=== PATIENT | female | born 1990 | race Caucasian/White ===

== ENCOUNTER 2017-03-26 09:20 | Emergency (ER) | payer OTHER ==
[~2017-03-26] VITALS: Ht 162.6 cm; Wt 81.6 kg
[~2017-03-26 09:20] MED LIST: ACET1TAB43 PO; AMOX500C2 PO; BC PILL PO; CEFD300C3 PO; DCS100C PO; HYDR-89 PO; HYDR1TAB PO; HYOS0.1217 PO; IBP800T PO; NAPR-243 PO; NAPR220T76; NITR-65 PO; NITR100C3 PO; NORE1TAB40 PO; ONDA-42 SL; PHEN200T27 PO; SPRINTEC; [UNRECOGNIZED DRUG - REMARK]
[2017-03-26] MEDS ORDERED: IBUPROFEN 800 MG (MOTRIN) TAB PO STA (09:57)
[2017-03-26] MEDS ORDERED: CYCLOBENZAPRINE 10 MG (FLEXERIL) TAB PO STA (09:57)
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
[2017-03-26] MEDS ORDERED: CYCL10TA9 PO (10:10)
[2017-03-26 10:14] VITALS: BP 130/76
== END 2017-03-26 10:14 | disposition home or self-care (01) ==
LOC: EDUNIT# 09:20 → ER 09:22
DX: S50.11XA Contusion of right forearm, initial encounter (principal); Z90.710 Acquired absence of both cervix and uterus; Z87.59 Personal history of other complications of pregnancy, childbirth and the puerperium; V43.52XA Car driver injured in collision with other type car in traffic accident, initial encounter; Y92.411 Interstate highway as the place of occurrence of the external cause
CPT/HCPCS: 99283

== ENCOUNTER 2017-04-25 19:17 | Emergency (ER) | payer OTHER ==
[~2017-04-25] VITALS: Ht 162.6 cm; Wt 86.2 kg
[~2017-04-25 19:17] MED LIST changes: +CYCL10TA9 PO
--- OUTSIDE RECORDS SUMMARY | 2017-04-25 19:23 | XMS REPORT ---
Author Author JUWAN LIU [facility] eClinicalWorks Address Unknown Phone Unavailable Care Team Providers Care Managing Principal Name Role Phone JUWAN LIU CP Unavailable Allergies, Adverse Reactions, Alerts Substance Reaction Event Type N.K.D.A. Info Not Available Non Drug Allergy Problems Problem Type Condition Code Onset Dates Condition Status Problem Acute serous otitis media 381.01 Active Problem Screening examination for venereal disease V74.5 Active Problem Unspecified symptom associated with female genital organs 625.9 Active Problem Cough 786.2 Active Problem Dysuria 788.1 Active Problem Acute sinusitis, unspecified 461.9 Active Problem Major depressive disorder, single episode, moderate 296.22 Active Problem Nausea alone 787.02 Active Problem Abdominal pain, unspecified site 789.00 Active Problem Other and unspecified noninfectious gastroenteritis and colitis 558.9 Active Assessment Granulation tissue L92.9 Active Assessment Contusion of right great toe with damage to nail S90.211A Active Problem Intestinal infection due to other organism, NEC 008.8 Active Problem Other acute sinusitis 461.8 Active Medications Medication Code System Code Instructions Start Date End Date Status Dosage Sprintec 28 [facility] [address]-58 0.25-35 MG-MCG Orally Once a day 1 tablet Procedures Procedure Coding System Code Date Office Visit, Est Pt., Level 3 CPT-4 15749 Jun 13, 2015 Vital Signs Date/Time: Jun 13, 2015 Temperature 98.0 F Weight 188 lbs Height 64 in BMI 32.27 Index Blood Pressure Diastolic 62 mmHg Blood Pressure Systolic 102 mmHg Cardiac Monitoring Heart Rate 70 bpm Results No Known Results Summary Purpose eClinicalWorks Submission
--- OUTSIDE RECORDS SUMMARY | 2017-04-25 19:23 | XMS REPORT ---
Author Author JAIDA MOREIRA [facility] Address [address] [place] [address] Care Team Providers Care Bobcat Driver/Labor Name Role Phone JAIDA MOREIRA Unavailable PROBLEMS Type Condition ICD9-CM Code OVN51-CV Code Onset Dates Condition Status SNOMED Code Problem Unspecified symptom associated with female genital organs 625.9 Active 828456082 Problem Nausea alone 787.02 Active 957610243 Problem Screening examination for venereal disease V74.5 Active 489650396 Assessment Overweight E66.3 Jun, Active 530416165 Problem Intestinal infection due to other organism, NEC 008.8 Active 68341641 Problem Other acute sinusitis 461.8 Active 50782551 Problem Acute serous otitis media 381.01 Active 542737464 Problem Acute sinusitis, unspecified 461.9 Active 59696746 Problem Cough 786.2 Active 95036206 Problem Other and unspecified noninfectious gastroenteritis and colitis 558.9 Active 62523640 Problem Major depressive disorder, single episode, moderate 296.22 Active 15089254 Problem Dysuria 788.1 Active 61568225 Problem Abdominal pain, unspecified site 789.00 Active 16987961 ALLERGIES Substance Reaction Event Type Date Status N.K.D.A. Unknown Non Drug Allergy Jun, Unknown SOCIAL HISTORY No smoking Hx information available PLAN OF CARE VITAL SIGNS Height 64 in 2016-07-24 Weight 192 lbs 2016-07-24 Heart Rate 72 bpm 2016-07-24 Respiratory Rate 18 2016-07-24 BMI 32.95 kg/m2 2016-07-24 Blood pressure systolic 98 mmHg 2016-07-24 Blood pressure diastolic 62 mmHg 2016-07-24 MEDICATIONS Medication Instructions Dosage Frequency Start Date End Date Duration Status Estrogens Conjugated Active Contrave 8-90 MG Orally Twice a day 1 tablet at PM X 5 days the 1 AM and 1 PM X 5 days then 2in PM and 1 in AM X 5 days then 2 in AM and 2 in PM 12h Jun, Oct, 30 day(s) Active Prozac 20 MG Orally Once a day 1 capsule in the morning 24h Active Sprintec 28 0.25-35 MG-MCG Orally in the evening 1 tablet Active RESULTS No Results PROCEDURES Procedure Date Ordered Related Diagnosis Body Site Office Visit, Est Pt., Level 3 Jul 24, 2016 IMMUNIZATIONS No Known Immunizations
--- OUTSIDE RECORDS SUMMARY | 2017-04-25 19:23 | XMS REPORT ---
Author Author JAIDA MOREIRA [facility] Address [address] [place] [address] Care Team Providers Care Uniform Attendant Name Role Phone JAIDA MOREIRA Unavailable PROBLEMS Type Condition ICD9-CM Code WIM75-RF Code Onset Dates Condition Status SNOMED Code Problem Unspecified symptom associated with female genital organs 625.9 Active 331825602 Problem Nausea alone 787.02 Active 681609838 Problem Screening examination for venereal disease V74.5 Active 419397517 Problem Intestinal infection due to other organism, NEC 008.8 Active 91157279 Problem Other acute sinusitis 461.8 Active 35047921 Problem Acute serous otitis media 381.01 Active 047872881 Problem Acute sinusitis, unspecified 461.9 Active 26670300 Problem Cough 786.2 Active 68387790 Problem Other and unspecified noninfectious gastroenteritis and colitis 558.9 Active 16084258 Problem Major depressive disorder, single episode, moderate 296.22 Active 79796313 Problem Dysuria 788.1 Active 30677549 Problem Abdominal pain, unspecified site 789.00 Active 72660713 ALLERGIES Unknown Allergies SOCIAL HISTORY No smoking Hx information available PLAN OF CARE VITAL SIGNS MEDICATIONS Unknown Medications RESULTS No Results PROCEDURES No Known procedures IMMUNIZATIONS No Known Immunizations
--- OUTSIDE RECORDS SUMMARY | 2017-04-25 19:23 | XMS REPORT ---
Author Author JHONATAN SLOAN [facility] eClinicalWorks Address Unknown Phone Unavailable Care Team Providers [employer] Sales Consultant Name Role Phone JHONATAN SLOAN CP Unavailable Allergies, Adverse Reactions, Alerts Substance [...] noninfectious gastroenteritis and colitis 558.9 Active Assessment Postnasal drip R09.82 Active Assessment Sore throat J02.9 Active Assessment Strep pharyngitis J02.0 Active Problem Intestinal infection due to other organism, NEC 008.8 Active Assessment Laryngitis J04.0 Active Problem Other acute sinusitis 461.8 Active Medications Medication Code System Code Instructions Start Date End Date Status Dosage Augmentin [facility] [address]-57 875-125 MG Orally every 12 hrs Jul 25, 2015 Aug 04, 2015 1 tablet PredniSONE [facility] [address]-27 10 MG Orally Twice a day Jul 25, 2015Jul 1 tablet with food or milk Procedures Procedure Coding System Code Date Office Visit, Est Pt., Level 3 CPT-4 40617 Jul 25, 2015 STREP A ASSAY W/OPTIC CPT-4 13310 Jul 25, 2015 Vital Signs Date/Time: Jul 25, 2015 Temperature 98.6 F Weight 186.3 lbs Height 64 in BMI 31.97 Index Blood Pressure Diastolic 80 mmHg Blood Pressure Systolic 120 mmHg Cardiac Monitoring Heart Rate 88 bpm Results Name Result Date Reference Range Unit Abnormality Flag STREP A (IN HOUSE) ----STREP A Positive [id number] ----Control + [id number] ----Lot # [id number] ----Exp date 07/25/201620150725 Summary Purpose eClinicalWorks Submission
--- OUTSIDE RECORDS SUMMARY | 2017-04-25 19:23 | XMS REPORT ---
Author Author JAIDA MORIERA [facility] eClinicalWorks Address Unknown Phone Unavailable Care Team Providers Care American Sign Language Teacher Name Role Phone JAIDA MOREIRA CP Unavailable Allergies No Known Allergies Problems Problem Type Condition Code Onset Dates Condition Status Problem Acute serous otitis media 381.01 Active Problem Screening examination for venereal disease V74.5 Active Problem Unspecified symptom associated with female genital organs 625.9 Active Problem Intestinal infection due to other organism, NEC 008.8 Active Problem Other acute sinusitis 461.8 Active Problem Cough 786.2 Active Problem Dysuria 788.1 Active Problem Acute sinusitis, unspecified 461.9 Active Problem Major depressive disorder, single episode, moderate 296.22 Active Problem Nausea alone 787.02 Active Problem Abdominal pain, unspecified site 789.00 Active Problem Other and unspecified noninfectious gastroenteritis and colitis 558.9 Active Medications No Known Medications Results No Known Results Summary Purpose eClinicalWorks Submission
--- OUTSIDE RECORDS SUMMARY | 2017-04-25 19:23 | XMS REPORT ---
Author Author JAIDA MOREIRA [facility] eClinicalWorks Address Unknown Phone Unavailable Care Team Providers Care Transportation Museum Helper Name Role Phone JAIDA MOREIRA CP Unavailable Allergies, Adverse Reactions, Alerts Substance [...] noninfectious gastroenteritis and colitis 558.9 Active Assessment Encounter for wellness examination Z00.00 Active Assessment Encounter to establish care Z76.89 Active Problem Intestinal infection due to other organism, NEC 008.8 Active Problem Other acute sinusitis 461.8 Active Medications Medication Code System Code Instructions Start Date End Date Status Dosage Sprintec 28 [facility] [address]-23 0.25-35 MG-MCG Orally in the evening 1 tablet Prozac [facility] [address]-60 20 MG Orally Once a day 1 capsule in the morning Estrogens Conjugated [facility] [address]-38 not defined Procedures Procedure Coding System Code Date COMPLETE CBC W/AUTO DIFF WBC CPT-4 61342 May 17, 2016 VENIPUNCT, ROUTINE* CPT-4 48198 May 17, 2016 COMPREHEN METABOLIC PANEL CPT-4 25065 May 17, 2016 Office Visit, New Pt., Level 3 CPT-4 75176 May 17, 2016 Vital Signs Date/Time: May 17, 2016 Cardiac Monitoring Heart Rate 68 bpm Weight 193.5 lbs Height 64 in BMI 33.21 Index Blood Pressure Diastolic 72 mmHg Blood Pressure Systolic 100 mmHg Results Name Result Date Reference Range Unit Abnormality Flag CMP ----Calcium, Serum 9.1 14032103 8.7-10.2 mg/dL ----Carbon Dioxide, Total 21 36357291 18-29 mmol/L ----ALT (SGPT) 13 [id number] 0-32 IU/L ----Creatinine, Serum 0.66 36200922 0.57-1.00 mg/dL ----AST (SGOT) 16 20160517 0-40 IU/L ----eGFR If NonAfricn Am 125 59835781 >59 mL/min/1.73 ----Alkaline Phosphatase, S 73 38791256 39-117 IU/L ----eGFR If Africn Am 144 26492688 >59 mL/min/1.73 ----Bilirubin, Total 0.3 42712005 0.0-1.2 mg/dL ----BUN/Creatinine Ratio 17 20160517 8-20 ----A/G Ratio 1.4 70537431 1.1-2.5 ----Sodium, Serum 139 24344148 134-144 mmol/L ----Globulin, Total 3.1 37889990 1.5-4.5 g/dL ----Potassium, Serum 4.0 17354881 3.5-5.2 mmol/L ----Glucose, Serum 65 25296102 65-99 mg/dL ----Chloride, Serum 98 11498073 97-108 mmol/L ----Albumin, Serum 4.4 44434903 3.5-5.5 g/dL ----BUN 11 52024339 6-20 mg/dL ----Protein, Total, Serum 7.5 25100932 6.0-8.5 g/dL ROUTINE VENIPUNCTURE CBC ----MCHC 34.8 62481860 31.5-35.7 g/dL ----MCH 30.8 95342200 26.6-33.0 pg ----Platelets 375 88086185 150-379 x10E3/uL ----RDW 12.9 84795519 12.3-15.4 % ----Immature Granulocytes 0 07739971 % ----Immature Grans (Abs) 0.0 42253863 0.0-0.1 x10E3/uL ----Lymphs 32 55156211 % ----Monocytes 9 14652948 % ----Neutrophils 57 06857702 % ----Neutrophils (Absolute) 5.5 64502346 1.4-7.0 x10E3/uL ----Hematocrit 40.0 73787601 34.0-46.6 % ----Lymphs (Absolute) 3.1 14320406 0.7-3.1 x10E3/uL ----MCV 89 61375123 79-97 fL ----RBC 4.52 14151379 3.77-5.28 x10E6/uL ----Eos 2 58993331 % ----Basos 0 31647246 % ----Hemoglobin 13.9 20160517 11.1-15.9 g/dL ----Baso (Absolute) 0.0 90264115 0.0-0.2 x10E3/uL ----WBC 9.7 04530762 3.4-10.8 x10E3/uL ----Monocytes(Absolute) 0.9 25239141 0.1-0.9 x10E3/uL ----Eos (Absolute) 0.2 45146244 0.0-0.4 x10E3/uL Summary Purpose eClinicalWorks Submission
[2017-04-25] MEDS ORDERED: ACETAMINOPHEN 500 MG TAB (TYLENOL) PO STA (19:44)
[2017-04-25 20:06] LABS: BASOPHILS % (AUTO) 0 % (0-10); EOSINOPHILS # (AUTO) 0.1 10^3/uL (0.0-0.3); EOSINOPHILS % (AUTO) 1 % (0-10); LYMPHOCYTES # (AUTO) 0.5 X 10^3 (1.0-4.0); LYMPHOCYTES % (AUTO) 5 % (12-44); MEAN CORPUSCULAR HEMOGLOBIN 30 PG (25-34); MEAN CORPUSCULAR HGB CONC 33 G/DL (32-36); MEAN CORPUSCULAR VOLUME 92 FL (80-99); MEAN PLATELET VOLUME 9.7 FL (7.4-10.4); MONOCYTES # (AUTO) 1.1 X 10^3 (0.0-1.0); MONOCYTES % (AUTO) 10 % (0-12); NEUTROPHILS # (AUTO) 8.6 X 10^3 (1.8-7.8); NEUTROPHILS % (AUTO) 84 % (42-75); PLATELET COUNT 262 10^3/uL (130-400); RED BLOOD COUNT 4.44 10^6/uL (4.35-5.85); RED CELL DISTRIBUTION WIDTH 12.6 % (10.0-14.5); WHITE BLOOD COUNT 10.3 10^3/uL (4.3-11.0)
[2017-04-25 20:28] LABS: BAND NEUTROPHILS 3 %; BASOPHILS % (MANUAL) 0 %; EOSINOPHILS % (MANUAL) 1 %; LYMPHOCYTES % (MANUAL) 6 %; NEUTROPHILS % (MANUAL) 90 %
[2017-04-25 20:35] LABS: BILIRUBIN,URINE NEGATIVE (NEGATIVE); KETONES,URINE 2+ (NEGATIVE); LEUKOCYTE ESTERASE ,URINE 2+ (NEGATIVE); NITRITE,URINE NEGATIVE (NEGATIVE); PH,URINE 8 (5-9); PROTEIN,URINE 1+ (NEGATIVE); UROBILINOGEN,URINE 4 MG/DL (NORMAL)
[2017-04-25 20:40] LABS: ALANINE AMINOTRANSFERASE 28 U/L (0-55); ANION GAP 9 MMOL/L (5-14); ASPARTATE AMINO TRANSFERASE 19 U/L (5-34); BILIRUBIN,TOTAL 0.5 MG/DL (0.1-1.0); BLOOD UREA NITROGEN 11 MG/DL (7-18); BUN/CREATININE RATIO 15; CALCIUM 8.7 MG/DL (8.5-10.1); CARBON DIOXIDE 24 MMOL/L (21-32); CHLORIDE 105 MMOL/L (98-107); CREATININE SERUM 0.72 MG/DL (0.60-1.30); GFR ESTIMATED > 60; GLUCOSE 82 MG/DL (70-105); POTASSIUM 3.7 MMOL/L (3.6-5.0); SODIUM 138 MMOL/L (135-145)
[2017-04-25 20:44] LABS: SQUAMOUS EPITHELIAL CELL,UR 25-50 /HPF
--- NOTE | 2017-04-25 20:49 | ED Cough/URI ---
General Chief Complaint: Cough/Cold/Flu Symptoms Stated Complaint: TROUBLE BREATHING;NAUSEA Nursing Triage Note: PT TO ED 7 W/ C/O RUNNY NOSE ONSET LAST NOC W/ CONGESTION, FEVER, ACHES ONSET TODAY. REPORTS SHE HAS TAKEN IBUPROFEN FOR FEVER BUT DENIES TAKING ANY OTHER MEDS. NO OTHER C/O VOICED History of Present Illness Time seen by provider: 17:20 Initial Comments Evaluation for fever and sinus congestion with myalgias. She reports her symptoms began yesterday. She has a history of allergic rhinitis, and is taking her allergy medicine. She noted a temp of 99-100 today. He took ibuprofen one time. Timing/Duration: yesterday Severity/Quality: no cough Prior Episodes/Possible Cause: no prior episodes Associated Symptoms: facial pain, fever/chills, headache, muscle aches, nasal congestion, nasal drainage, sinus infection Allergies and Home Medications Allergies Coded Allergies: No Known Drug Allergies (Unverified , 03/14/10) Home Medications Cefdinir 300 Mg Capsule, 300 MG PO BID, #20 Ref 0 Prescribed by: EUNICE SCOTT on 04/25/17 2205 Cyclobenzaprine HCl 10 Mg Tablet, 10 MG PO Q8H PRN for SPASMS, #15 Ref 0 Prescribed by: SHANNA SALVADOR on 03/26/17 1010 Hyoscyamine Sulfate 0.125 Mg/Tab Tab.rapdis, 1-2 EACH PO Q4HR PRN, #30 FOR STOMACH DISCOMFORT Prescribed by: EFREN STOCKTON on 08/27/13 0904 Nitrofurantoin/Nitrofuran Mac 100 Mg Capsule, 1 EACH PO BID, #20 FOR INFECTION Prescribed by: EFREN STOCKTON on 08/27/13 0904 Ondansetron Hcl 4 Mg Tab, 4 MG SL Q4H, #5 FOR NAUSEA AND VOMITING Prescribed by: EFREN STOCKTON on 08/27/13 0904 Phenazopyridine Hcl 200 Mg Tablet, 1 EACH PO TID PRN, #15 FOR BLADDER DISCOMFORT Prescribed by: EFREN STOCKTON on 08/27/13 0905 [Estrogen Pill] , DAILY, (Reported) [Sprintec] , DAILY, (Reported) Constitutional: no symptoms reported, see HPI EENTM: see HPI, nose congestion, throat pain Respiratory: no symptoms reported, see HPI Cardiovascular: no symptoms reported, see HPI Gastrointestinal: no symptoms reported, see HPI Genitourinary: see HPI, No dysuria, No frequency, No hematuria : No (full hysterectomy) Musculoskeletal: see HPI, back pain (Generalized myalgias), joint pain, muscle pain All Other Systems Reviewed Negative Unless Noted: Yes Past Fcbzxkq-Knovof-Kuqaye Hx Patient Social History Alcohol Use: Denies Use Recreational Drug Use: No Smoking Status: Never a Smoker 2nd Hand Smoke Exposure: No Recent Foreign Travel: No Contact w/Someone Who Travel: No Recent Infectious Disease Expo: No Recent Hopitalizations: No Physical Abuse: No Sexual Abuse: No Mistreated: No Fear: No Seasonal Allergies Seasonal Allergies: No Surgeries History of Surgeries: Yes (DIAGNOSTIC LAPAROSCOPIES) Surgeries: Section, 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 Respiratory History of Respiratory Disorde: No Cardiovascular History of Cardiac Disorders: No Neurological History of Neurological Disord: No 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 System Sexually Transmitted Disease: No Female 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 Disorders: Endometriosis 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 Gastrointestinal History of Gastrointestinal Di: No Musculoskeletal History of Musculoskeletal Dis: No Endocrine History of Endocrine Disorders: No Cancer History of Cancer: No Psychosocial History of Psychiatric Problem: No Suicide Risk Score: 0 Integumentary History of Skin or Integumenta: No Blood Transfusions History of Blood Disorders: No Reviewed Nursing Assessment Reviewed/Agree w Nursing PMH: Yes Family Medical History Significant Family History: No Pertinent Family Hx Physical Exam Vital Signs Vital Sign - Last 12Hours 04/25/17 19:26 Temp 100.7 Pulse 112 Resp 20 B/P (MAP) 114/104 Pulse Ox 99 O2 Delivery Room Air Capillary Refill : Less Than 3 Seconds General Appearance: WD/WN, no apparent distress Eyes: Bilateral Eye Normal Inspection, Bilateral Eye PERRL, Bilateral Eye EOMI HEENT: PERRL/EOMI, normal ENT inspection, No photophobia, TM abnormal (R), TM abnormal (L), other (postnasal drainage, bilateral TMs with clear effusion and bulging. No maxillary or frontal sinus tenderness) Neck: non-tender, full range of motion, normal inspection, lymphadenopathy (R) , lymphadenopathy (L) Respiratory: chest non-tender, lungs clear, normal breath sounds Cardiovascular: normal peripheral pulses, regular rate, rhythm, no edema, no murmur Gastrointestinal: normal bowel sounds, non tender, soft, other (CVAT, She reports it is superficial muscle and skin tenderness, not deep pain. ) Extremities: normal range of motion, non-tender, normal inspection, no pedal edema, no calf tenderness Neurologic/Psychiatric: no motor/sensory deficits, alert, normal mood/affect, oriented x 3 Skin: diaphoresis (warm shivering) Lymphatic: no adenopathy Focused Exam Evaluation Lactate Level Laboratory Tests 04/25/17 21:32: Lactic Acid Level 0.82 Lactic Acid Level Laboratory Tests Test 04/25/17 21:32 Lactic Acid Level 0.82 MMOL/L (0.50-2.00) Progress/Results/Core Measures Results/Orders Lab Results Laboratory Tests Test 04/25/17 19:58 04/25/17 20:25 04/25/17 21:32 Range/Units White Blood Count 10.3 4.3-11.0 10^3/uL Red Blood Count 4.44 4.35-5.85 10^6/uL Hemoglobin 13.4 11.5-16.0 G/DL Hematocrit 41 35-52 % Mean Corpuscular Volume 92 80-99 FL Mean Corpuscular Hemoglobin 30 25-34 PG Mean Corpuscular Hemoglobin Concent 33 32-36 G/DL Red Cell Distribution Width 12.6 10.0-14.5 % Platelet Count 262 130-400 10^3/uL Mean Platelet Volume 9.7 7.4-10.4 FL Neutrophils (%) (Auto) 84 H 42-75 % Lymphocytes (%) (Auto) 5 L 12-44 % Monocytes (%) (Auto) 10 0-12 % Eosinophils (%) (Auto) 1 0-10 % Basophils (%) (Auto) 0 0-10 % Neutrophils # (Auto) 8.6 H 1.8-7.8 X 10^3 Lymphocytes # (Auto) 0.5 L 1.0-4.0 X 10^3 Monocytes # (Auto) 1.1 H 0.0-1.0 X 10^3 Eosinophils # (Auto) 0.1 0.0-0.3 10^3/uL Basophils # (Auto) 0.0 0.0-0.1 10^3/uL Neutrophils % (Manual) 90 % Lymphocytes % (Manual) 6 % Monocytes % (Manual) 0 % Eosinophils % (Manual) 1 % Basophils % (Manual) 0 % Band Neutrophils 3 % Blood Morphology Comment NORMAL Sodium Level 138 135-145 MMOL/L Potassium Level 3.7 3.6-5.0 MMOL/L Chloride Level 105 98-107 MMOL/L Carbon Dioxide Level 24 21-32 MMOL/L Anion Gap 9 5-14 MMOL/L Blood Urea Nitrogen 11 7-18 MG/DL Creatinine 0.72 0.60-1.30 MG/DL Estimat Glomerular Filtration Rate > 60 BUN/Creatinine Ratio 15 Glucose Level 82 70-105 MG/DL Calcium Level 8.7 8.5-10.1 MG/DL Total Bilirubin 0.5 0.1-1.0 MG/DL Aspartate Amino Transf (AST/SGOT) 19 5-34 U/L Alanine Aminotransferase (ALT/SGPT) 28 0-55 U/L Alkaline Phosphatase 75 40-136 U/L Total Protein 7.0 6.4-8.2 GM/DL Albumin 4.0 3.2-4.5 GM/DL Monoscreen NEGATIVE NEGATIVE Urine Color YELLOW Urine Clarity VERY CLOUDY H Urine pH 8 5-9 Urine Specific [place] 1.010 L 1.016-1.022 Urine Protein 1+ H NEGATIVE Urine Glucose (UA) NEGATIVE NEGATIVE Urine Ketones 2+ H NEGATIVE Urine Nitrite NEGATIVE NEGATIVE Urine Bilirubin NEGATIVE NEGATIVE Urine Urobilinogen 4 H NORMAL MG/DL Urine Leukocyte Esterase 2+ H NEGATIVE Urine RBC (Auto) 1+ H NEGATIVE Urine RBC 5-10 H /HPF Urine WBC 5-10 H /HPF Urine Squamous Epithelial Cells 25-50 H /HPF Urine Crystals NONE /LPF Urine Bacteria LARGE H /HPF Urine Casts NONE /LPF Urine Mucus LARGE H /LPF Urine Culture Indicated YES Lactic Acid Level 0.82 0.50-2.00 MMOL/L Micro Results Microbiology 04/25/17 Influenza Types A,B Antigen (CHRISTEL) - Final, Complete My Orders Orders - EUNICE SCOTT Cbc With Automated Diff (04/25/17 19:44) Comprehensive Metabolic Panel (04/25/17 19:44) Monotest (04/25/17 19:44) Ua Culture If Indicated (04/25/17 19:44) Acetaminophen Tablet (Tylenol Tablet) (04/25/17 19:44) Influenza A And B Antigens (04/25/17 19:56) Manual Differential (04/25/17 19:58) Urine Culture (04/25/17 20:25) Ibuprofen Tablet (Motrin Tablet) (04/25/17 21:17) Ibuprofen Tablet (Motrin Tablet) (04/25/17 21:11) Cefdinir Capsule (Omnicef Capsule) (04/25/17 21:30) Blood Culture (04/25/17 21:25) Lactic Acid Analyzer (04/25/17 21:25) Saline Lock/Iv-Start (04/25/17 21:25) Ns Iv 1000 Ml (Sodium Chloride 0.9%) (04/25/17 21:25) Ceftriaxone Injection (Rocephin Injectio (04/25/17 21:45) Dexamethasone Pf Injection (Decadron Pf (04/25/17 22:05) Dexamethasone Injection (Decadron Inject (04/25/17 22:24) Medications Given in ED Current Medications Medications Dose Ordered Sig/Carrol Route Start Time Stop Time Status Last Admin Dose Admin Ceftriaxone Sodium 2000 mg/ Sodium Chloride 50 ml @ 100 mls/hr ONCE ONCE IV 04/25/17 21:45 04/25/17 22:14 DC 04/25/17 21:59 100 MLS/HR Sodium Chloride 1,000 ml @ 0 mls/hr Q0M ONCE IV 04/25/17 21:25 04/25/17 21:54 DC 04/25/17 21:34 1,000 MLS/HR Vital Signs/I&O Vital Sign - Last 12Hours 04/25/17 19:26 Temp 100.7 Pulse 112 Resp 20 B/P (MAP) 114/104 Pulse Ox 99 O2 Delivery Room Air Intake and Output 04/26/17 00:00 Intake Total 1050 ml Balance 1050 ml Blood Pressure Mean: 107 Progress Note : Time: 17:20 Progress Note Initial evaluation completed, recommended CBC, UA, CMP, mono and influenza screen. Tylenol 1000 mg by mouth. 0 Temp 102.1, Ibuprofen 800 mg po. Rocephin 2 g IV and NS 1 Liter IV. Patient pushing water and taking ice chips. 0 Temp 100.1. Patient reports myalgias and arthralgias are improving. She has no CVAT. 2230 temperature 99.3. Patient has taken a glass and a half of water. She does report to be feeling better. His charge instructions reviewed with her in detail , she has no questions. Departure Impression Impression: Primary Impression: Urinary tract infection Qualified Codes: N30.01 - Acute cystitis with hematuria Additional Impression: Allergic rhinitis Qualified Codes: J30.2 - Other seasonal allergic rhinitis Disposition: HOME, SELF-CARE Condition: Improved Departure-Patient Inst. Decision time for Depature: 21:30 Referrals: JILL SUTTON MD (PCP/Family) Primary Care Physician Patient Instructions: Urinary Tract Infection, Adult (DC), [facility]. Add. Discharge Instructions: Obtain a Favian Med sinus rinse, use this every 2-3 hours for congestion. Take antibiotic as prescribed. Alternate every 4 hours: Ibuprofen 800 mg and Tylenol 650 mg Increase fluid intake and rest. Follow-up with Dr. Sutton tomorrow or early next week if symptoms are not improving. Return to emergency department for fever greater than 101 not relieved with Tylenol or ibuprofen, weakness, altered mental status, low back or flank pain, or new concerns. All discharge instructions reviewed with patient and/or family. Voiced understanding. Scripts Cefdinir (Cefdinir) 300 Mg Capsule 300 MG PO BID, #20 CAP 0 Refills Prov: EUNICE SCOTT 04/25/17 Work/School Note: Work Release Form Date Seen in the Emergency Department: Apr 25, 2017 Return to Work: Apr 30, 2017 Restrictions: No Restrictions Copy Copies To 1: JILL SUTTON MD, AMY ARNP Apr 25, 2017 20:49
[2017-04-25] MEDS ORDERED: IBUPROFEN 800 MG (MOTRIN) TAB PO ONE (21:11)
[2017-04-25] MEDS ORDERED: IBUPROFEN 800 MG (MOTRIN) TAB PO STA (21:17)
[2017-04-25] MEDS ORDERED: NS IV 1000 ML 1,000 ML IV ONE (21:25)
[2017-04-25] MEDS ORDERED: CEFDINIR 300 MG (OMNICEF) CAP PO ONE (21:30)
[2017-04-25] MEDS ORDERED: cefTRIAXone INJECTION 2,000 MG in NS (IVPB) 50 ML IV ONE (21:45)
[2017-04-25] MEDS ORDERED: DEXAMETHASONE PF 10 MG/ML (DECADRON) VIAL IV STA (22:05)
[2017-04-25] MEDS ORDERED: CEFD300C3 PO (22:05)
[2017-04-25] MEDS ORDERED: DEXAMETHASONE 10 MG/ML (DECADRON) 1 ML VIAL ONE (22:24)
[2017-04-25 22:37] VITALS: BP 118/69
== END 2017-04-25 22:37 | disposition home or self-care (01) ==
LOC: EDUNIT# 19:17 → ER 19:18
DX: J30.9 Allergic rhinitis, unspecified (principal); N39.0 Urinary tract infection, site not specified; Z90.710 Acquired absence of both cervix and uterus; Z87.59 Personal history of other complications of pregnancy, childbirth and the puerperium
CPT/HCPCS: 36415; 80053; 81000; 83605; 85007; 85027; 86308; 87040; 87077; 87088; 87186; 87804; 96365; 96375

== ENCOUNTER 2017-08-06 17:01 | Emergency (ER) | payer OTHER ==
[~2017-08-06] VITALS: Ht 162.6 cm; Wt 77.1 kg
[2017-08-06] MEDS ORDERED: LACTATED RINGERS 1,000 ML IV ONE (17:28)
[2017-08-06] MEDS ORDERED: HYOSCYAMINE 0.125 MG (LEVSIN) TAB SL ONE (17:30)
[2017-08-06] MEDS ORDERED: FAMOTIDINE 20MG/2ML IV (PEPCID) IVP ONE (17:30)
[2017-08-06 17:51] LABS: BASOPHILS % (AUTO) 0 % (0-10); EOSINOPHILS # (AUTO) 0.2 10^3/uL (0.0-0.3); EOSINOPHILS % (AUTO) 1 % (0-10); LYMPHOCYTES # (AUTO) 1.9 X 10^3 (1.0-4.0); LYMPHOCYTES % (AUTO) 13 % (12-44); MEAN CORPUSCULAR HEMOGLOBIN 30 PG (25-34); MEAN CORPUSCULAR HGB CONC 33 G/DL (32-36); MEAN CORPUSCULAR VOLUME 90 FL (80-99); MEAN PLATELET VOLUME 10.4 FL (7.4-10.4); MONOCYTES # (AUTO) 0.8 X 10^3 (0.0-1.0); MONOCYTES % (AUTO) 6 % (0-12); NEUTROPHILS # (AUTO) 11.8 X 10^3 (1.8-7.8); NEUTROPHILS % (AUTO) 80 % (42-75); PLATELET COUNT 351 10^3/uL (130-400); RED BLOOD COUNT 4.61 10^6/uL (4.35-5.85); RED CELL DISTRIBUTION WIDTH 12.6 % (10.0-14.5); WHITE BLOOD COUNT 14.8 10^3/uL (4.3-11.0)
[2017-08-06 18:04] LABS: ALANINE AMINOTRANSFERASE 11 U/L (0-55); ALBUMIN 4.1 GM/DL (3.2-4.5); ANION GAP 15 MMOL/L (5-14); ASPARTATE AMINO TRANSFERASE 17 U/L (5-34); BAND NEUTROPHILS 9 %; BASOPHILS % (MANUAL) 1 %; BILIRUBIN,TOTAL 0.4 MG/DL (0.1-1.0); BLOOD UREA NITROGEN 15 MG/DL (7-18); BUN/CREATININE RATIO 19; CALCIUM 9.2 MG/DL (8.5-10.1); CARBON DIOXIDE 18 MMOL/L (21-32); CHLORIDE 106 MMOL/L (98-107); CREATININE SERUM 0.77 MG/DL (0.60-1.30); EOSINOPHILS % (MANUAL) 1 %; GFR ESTIMATED > 60; GLUCOSE 106 MG/DL (70-105); LIPASE 7 U/L (8-78); LYMPHOCYTES % (MANUAL) 15 %; MAGNESIUM 2.2 MG/DL (1.8-2.4); METAMYELOCYTES % 1 %; NEUTROPHILS % (MANUAL) 72 %; POTASSIUM 3.7 MMOL/L (3.6-5.0); SODIUM 139 MMOL/L (135-145)
--- NOTE | 2017-08-06 18:24 | ED GI ---
General Chief Complaint: Abdominal/GI Problems Stated Complaint: VOMITING Source of Information: Patient Exam Limitations: No Limitations (ZINA SOLO MD) History of Present Illness Time Seen By Provider: 17:19 Initial Comments This 26-year-old young lady presents to the emergency room with complaints of generalized abdominal pain, left greater than right as well as fairly abrupt onset of vomiting and diarrhea this afternoon. The abdominal pain started insidiously this morning and progressed throughout the day. The vomiting started suddenly and intensely this afternoon and was followed by diarrhea. She also reports she feels like her bladder is full but she cannot urinate. Her diarrhea consists of liquid stools without blood. There was no blood in her emesis. The pain in her abdomen is crampy in nature but is fairly constant. (ZINA SOLO MD) Allergies and Home Medications Allergies Coded Allergies: No Known Drug Allergies (Unverified , 08/06/17) Home Medications Cefdinir 300 Mg Capsule, 300 MG PO BID, #20 Ref 0 Prescribed by: EUNICE SCOTT on 04/25/17 2205 Cyclobenzaprine HCl 10 Mg Tablet, 10 MG PO Q8H PRN for SPASMS, #15 Ref 0 Prescribed by: SHANNA SALVADOR on 03/26/17 1010 Ondansetron Hcl 4 Mg Tab, 4 MG SL Q4H, #5 FOR NAUSEA AND VOMITING Prescribed by: EFREN STOCKTON on 08/27/13 0904 [Estrogen Pill] , DAILY, (Reported) [Sprintec] , DAILY, (Reported) Review of Systems Constitutional: no symptoms reported EENTM: No Symptoms Reported Respiratory: No Symptoms Reported Cardiovascular: No Symptoms Reported Gastrointestinal: See HPI Genitourinary: See HPI Musculoskeletal: no symptoms reported Skin: no symptoms reported Psychiatric/Neurological: No Symptoms Reported Endocrine: No Symptoms Reported Hematologic/Lymphatic: No Symptoms Reported (ZINA SOLO MD) Past Ugbrwkn-Renviw-Bozshs Hx Patient Social History 2nd Hand Smoke Exposure: No Recent Foreign Travel: No Contact w/Someone Who Travel: No Recent Hopitalizations: No (ZINA SOLO MD) Seasonal Allergies Seasonal Allergies: No (ZINA SOLO MD) Surgeries History of Surgeries: Yes (DIAGNOSTIC LAPAROSCOPIES) Surgeries: Section, 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 (ZNIA SOLO MD) Respiratory History of Respiratory Disorde: No (ZINA SOLO MD) Cardiovascular History of Cardiac Disorders: No (ZINA SOLO MD) Neurological History of Neurological Disord: No (ZINA SOLO MD) 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 System : No Sexually Transmitted Disease: No Female 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 Disorders: Endometriosis 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 (ZINA SOLO MD) Gastrointestinal History of Gastrointestinal Di: No (ZINA SOLO MD) Musculoskeletal History of Musculoskeletal Dis: No (ZINA SOLO MD) Endocrine History of Endocrine Disorders: No (ZINA SOLO MD) Cancer History of Cancer: No (ZINA SOLO MD) Psychosocial History of Psychiatric Problem: No (ZINA SOLO MD) Integumentary History of Skin or Integumenta: No (ZINA SOLO MD) Blood Transfusions History of Blood Disorders: No (ZINA SOLO MD) Family Medical History Significant Family History: No Pertinent Family Hx (ZINA SOLO MD) Physical Exam Vital Signs VS - Last 72 Hours, by Label 08/06/17 17:09 Temp 98.6 Pulse 105 Resp 22 B/P (MAP) 117/95 (102) Pulse Ox 96 O2 Delivery Room Air (ROBYN DASILVA APRN) Vital Signs Capillary Refill : (ZINA SOLO MD) General Appearance: WD/WN, mild distress HEENT: PERRL/EOMI, normal ENT inspection Neck: normal inspection Respiratory: lungs clear, normal breath sounds, no respiratory distress, no accessory muscle use Cardiovascular: no edema, no murmur, tachycardia Gastrointestinal: normal bowel sounds, soft, No distended, No guarding, No rebound, tenderness (diffuse, left greater than right) Extremities: normal inspection, no pedal edema 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, no motor/sensory deficits, alert, normal mood/affect, oriented x 3 Skin: normal color, warm/dry (ZINA SOLO MD) Progress/Results/Core Measures Results/Orders Lab Results Laboratory Tests Test 08/06/17 17:19 08/06/17 19:20 Range/Units White Blood Count 14.8 H 4.3-11.0 10^3/uL Red Blood Count 4.61 4.35-5.85 10^6/uL Hemoglobin 13.8 11.5-16.0 G/DL Hematocrit 41 35-52 % Mean Corpuscular Volume 90 80-99 FL Mean Corpuscular Hemoglobin 30 25-34 PG Mean Corpuscular Hemoglobin Concent 33 32-36 G/DL Red Cell Distribution Width 12.6 10.0-14.5 % Platelet Count 351 130-400 10^3/uL Mean Platelet Volume 10.4 7.4-10.4 FL Neutrophils (%) (Auto) 80 H 42-75 % Lymphocytes (%) (Auto) 13 12-44 % Monocytes (%) (Auto) 6 0-12 % Eosinophils (%) (Auto) 1 0-10 % Basophils (%) (Auto) 0 0-10 % Neutrophils # (Auto) 11.8 H 1.8-7.8 X 10^3 Lymphocytes # (Auto) 1.9 1.0-4.0 X 10^3 Monocytes # (Auto) 0.8 0.0-1.0 X 10^3 Eosinophils # (Auto) 0.2 0.0-0.3 10^3/uL Basophils # (Auto) 0.0 0.0-0.1 10^3/uL Neutrophils % (Manual) 72 % Lymphocytes % (Manual) 15 % Monocytes % (Manual) 1 % Eosinophils % (Manual) 1 % Basophils % (Manual) 1 % Metamyelocytes % 1 % Band Neutrophils 9 % Blood Morphology Comment NORMAL Sodium Level 139 135-145 MMOL/L Potassium Level 3.7 3.6-5.0 MMOL/L Chloride Level 106 98-107 MMOL/L Carbon Dioxide Level 18 L 21-32 MMOL/L Anion Gap 15 H 5-14 MMOL/L Blood Urea Nitrogen 15 7-18 MG/DL Creatinine 0.77 0.60-1.30 MG/DL Estimat Glomerular Filtration Rate > 60 BUN/Creatinine Ratio 19 Glucose Level 106 H 70-105 MG/DL Calcium Level 9.2 8.5-10.1 MG/DL Magnesium Level 2.2 1.8-2.4 MG/DL Total Bilirubin 0.4 0.1-1.0 MG/DL Aspartate Amino Transf (AST/SGOT) 17 5-34 U/L Alanine Aminotransferase (ALT/SGPT) 11 0-55 U/L Alkaline Phosphatase 87 40-136 U/L Total Protein 8.0 6.4-8.2 GM/DL Albumin 4.1 3.2-4.5 GM/DL Lipase 7 L 8-78 U/L Urine Color YELLOW Urine Clarity CLEAR Urine pH 6 5-9 Urine Specific [place] 1.025 H 1.016-1.022 Urine Protein 1+ H NEGATIVE Urine Glucose (UA) NEGATIVE NEGATIVE Urine Ketones 2+ H NEGATIVE Urine Nitrite NEGATIVE NEGATIVE Urine Bilirubin NEGATIVE NEGATIVE Urine Urobilinogen 1 NORMAL MG/DL Urine Leukocyte Esterase NEGATIVE NEGATIVE Urine RBC (Auto) 3+ H NEGATIVE Urine RBC 2-5 H /HPF Urine WBC NONE /HPF Urine Crystals NONE /LPF Urine Bacteria NONE /HPF Urine Casts NONE /LPF Urine Mucus SMALL H /LPF Urine Culture Indicated NO (ROBYN DASILVA APRN) My Orders Orders - ROBYN DASILVA APRN Ns Iv 1000 Ml (Sodium Chloride 0.9%) (08/06/17 19:00) Rx-Ondansetron Po (Rx-Zofran Po) (08/06/17 20:04) (ROBYN DASILVA APRN) Medications Given in ED Current Medications Medications Dose Ordered Sig/Carrol Route Start Time Stop Time Status Last Admin Dose Admin Famotidine 20 mg ONCE ONCE IVP 08/06/17 17:30 08/06/17 17:31 DC 08/06/17 17:40 20 MG Hyoscyamine Sulfate 0.25 mg ONCE ONCE SL 08/06/17 17:30 08/06/17 17:31 DC 08/06/17 17:39 0.25 MG Ketorolac Tromethamine 30 mg ONCE ONCE IVP 08/06/17 18:30 08/06/17 18:31 DC 08/06/17 18:33 30 MG Lactated Ringer's 1,000 ml @ 0 mls/hr Q0M ONCE IV 08/06/17 17:28 08/06/17 17:30 DC 08/06/17 17:40 1,000 MLS/HR Promethazine HCl 25 mg ONCE ONCE IVP 08/06/17 18:30 08/06/17 18:31 DC 08/06/17 18:33 25 MG (ROBYN DASILVA APRN) Vital Signs/I&O Vital Sign - Last 12Hours 08/06/17 17:09 Temp 98.6 Pulse 105 Resp 22 B/P (MAP) 117/95 (102) Pulse Ox 96 O2 Delivery Room Air (ROBYN DASILVA APRN) Progress Note : Time: 18:19 Progress Note Patient states nausea has improved but is still present. Phenergan has been ordered for additional treatment of nausea. She still is having some cramping and diarrhea despite Levsin. Toradol will be ordered for further management of the crampy pain. IV fluids have nearly finished infusing. Patient still has not urinated. I would like to ensure that she is able to urinate and a urine specimen is process before disposition as determined. Care of this patient is being transferred deferred to robyn aDsilva APRN at this time. (ZINA SOLO MD) Departure Impression Impression: Primary Impression: Nausea vomiting and diarrhea Additional Impressions: Abdominal pain, generalized Abdominal cramping Disposition: 01 HOME, SELF-CARE Condition: Stable Departure-Patient Inst. Decision time for Depature: 20:06 (ROBYN DASILVA APRN) Referrals: JILL BABB MD (PCP/Family) Primary Care Physician Patient Instructions: Nausea and Vomiting, Adult Add. Discharge Instructions: 1. Clear liquids only for the next 12 hours. This is anything you can see through such as Gatorade, chicken broth, Jell-O. Use the nausea medication as needed. Return to the emergency room for any fevers, recurrent or worsening abdominal pain or other concerns. Follow-up with your doctor later this week for recheck. All discharge instructions reviewed with patient and/or family. Voiced understanding. Work/School Note: Work Release Form Date Seen in the Emergency Department: Aug 06, 2017 Return to Work: Aug 08, 2017 ZINA SOLO MD Aug 06, 2017 18:24 ROBYN DASILVA APRN Aug 06, 2017 20:07
[2017-08-06] MEDS ORDERED: KETOROLAC 30 MG/ML VIAL IVP ONE (18:30)
[2017-08-06] MEDS ORDERED: PROMETHAZINE INJ 25 MG/ML (PHENERGAN) AMP IVP ONE (18:30)
[2017-08-06] MEDS ORDERED: NS IV 1000 ML 1,000 ML IV SCH (19:00)
[2017-08-06 19:28] LABS: BILIRUBIN,URINE NEGATIVE (NEGATIVE); KETONES,URINE 2+ (NEGATIVE); LEUKOCYTE ESTERASE ,URINE NEGATIVE (NEGATIVE); NITRITE,URINE NEGATIVE (NEGATIVE); PH,URINE 6 (5-9); PROTEIN,URINE 1+ (NEGATIVE); UROBILINOGEN,URINE 1 MG/DL (NORMAL)
[2017-08-06] MEDS ORDERED: RX-ONDANSETRON 4 MG ODT (ZOFRAN) PPK #4 PO STA (20:04)
[2017-08-06 20:17] VITALS: BP 124/72
== END 2017-08-06 20:17 | disposition home or self-care (01) ==
LOC: EDUNIT# 17:01 → ER 17:02
DX: R19.7 Diarrhea, unspecified (principal); R11.2 Nausea with vomiting, unspecified; R10.84 Generalized abdominal pain; Z87.59 Personal history of other complications of pregnancy, childbirth and the puerperium; Z90.710 Acquired absence of both cervix and uterus
CPT/HCPCS: 36415; 80053; 81000; 83690; 83735; 85007; 85027

== ENCOUNTER 2017-08-31 10:53 | Emergency (ER) | payer OTHER ==
[~2017-08-31] VITALS: Ht 162.6 cm; Wt 72.6 kg
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
[2017-08-31] MEDS ORDERED: CETI10CA PO (11:07)
[2017-08-31] MEDS ORDERED: FLUO20CA42 PO (11:07)
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
--- NOTE | 2017-08-31 11:19 | Diagnostic Imaging Report ---
Patient History: Two falls in 2 days, landing on right shoulder. Pain in the right shoulder. Technique: 3 views of the right shoulder Comparison: 05/02/2009 FINDINGS: No acute fracture or dislocation is seen in the right shoulder. Alignment appears normal. The joint spaces are preserved. IMPRESSION: No acute osseous abnormality seen in the right shoulder. Dictated by: Dictated on workstation # [id number]
[2017-08-31 11:31] VITALS: BP 126/79
== END 2017-08-31 11:31 | disposition home or self-care (01) ==
LOC: EDUNIT# 10:53 → ER 10:55
DX: M24.111 Other articular cartilage disorders, right shoulder (principal); F41.9 Anxiety disorder, unspecified; F32.9 Major depressive disorder, single episode, unspecified; Z90.710 Acquired absence of both cervix and uterus; Z87.59 Personal history of other complications of pregnancy, childbirth and the puerperium; W18.30XA Fall on same level, unspecified, initial encounter
CPT/HCPCS: 73030; 99282

== ENCOUNTER 2018-01-14 10:30 | Outpatient (CLI) | payer OTHER ==
[~2018-01-14 10:30] MED LIST changes: +CETI10CA PO; +FLUO20CA42 PO
== END 2018-01-14 10:31 | disposition home or self-care (01) ==
LOC: SLEEP 10:30
PROVIDERS: ATTEND Nurse Practitioner Family
DX: G47.10 Hypersomnia, unspecified (principal); R06.83 Snoring

== ENCOUNTER → 2018-05-12 | Outpatient (CLI) | payer OTHER ==
[~2018-05-12] MED LIST changes: +METO5TAB75 PO
--- NOTE | 2018-05-12 09:36 | Diagnostic Imaging Report ---
INDICATION: Constipation for 7 days. Time of exam 9:41 AM No free air is identified. There is moderate stool in the right colon. Bowel gas pattern is nonobstructive. No bowel wall thickening seen. No pathologic calcifications are identified. IMPRESSION: Moderate stool right colon. The study is otherwise unremarkable. Dictated by: Dictated on workstation # [id number]
== END ==
LOC: RAD 08:58
PROVIDERS: ATTEND Nurse Practitioner Family
DX: K59.00 Constipation, unspecified (principal)
CPT/HCPCS: 74019

== ENCOUNTER → 2018-05-16 | Outpatient (CLI) | payer OTHER ==
[~2018-05-16] VITALS: Ht 162.6 cm; Wt 72.6 kg
--- NOTE | 2018-05-16 14:13 | Diagnostic Imaging Report ---
PATIENT HISTORY: CONSTIPATION. TECHNIQUE: Frontal supine views of the abdomen. COMPARISON: 05/12/2018. FINDINGS: The bowel loops are nondistended. There is no evidence of bowel obstruction. A small amount of gas and stool is seen in the colon. Suture material is noted in the pelvis. Calcification is seen at the right upper liver, may represent a calcified granuloma. No large collection of free air is seen. IMPRESSION: 1. No evidence of bowel obstruction. Overall, small amount of stool in the colon. Dictated by: Dictated on workstation # [id number]
[2018-05-16 15:00] VITALS: BP 122/71
== END ==
LOC: SDC 12:47
PROVIDERS: ATTEND Nurse Practitioner Family
DX: K59.00 Constipation, unspecified (principal)
CPT/HCPCS: 74018

== ENCOUNTER 2018-05-20 21:24 | Emergency (ER) | payer OTHER ==
[~2018-05-20] VITALS: Ht 162.6 cm; Wt 90.7 kg
[~2018-05-20 21:24] MED LIST changes: -METO5TAB75 PO
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
[2018-05-20] MEDS ORDERED: NS IV 1000 ML 1,000 ML IV ONE (22:34)
[2018-05-20 22:41] LABS: BASOPHILS % (AUTO) 0 % (0-10); EOSINOPHILS # (AUTO) 0.2 10^3/uL (0.0-0.3); EOSINOPHILS % (AUTO) 1 % (0-10); HEMATOCRIT 37 % (35-52); HEMOGLOBIN 12.1 G/DL (11.5-16.0); LYMPHOCYTES # (AUTO) 3.3 X 10^3 (1.0-4.0); LYMPHOCYTES % (AUTO) 30 % (12-44); MEAN CORPUSCULAR HEMOGLOBIN 28 PG (25-34); MEAN CORPUSCULAR HGB CONC 33 G/DL (32-36); MEAN CORPUSCULAR VOLUME 86 FL (80-99); MEAN PLATELET VOLUME 9.3 FL (7.4-10.4); MONOCYTES # (AUTO) 0.8 X 10^3 (0.0-1.0); MONOCYTES % (AUTO) 7 % (0-12); NEUTROPHILS # (AUTO) 6.8 X 10^3 (1.8-7.8); NEUTROPHILS % (AUTO) 62 % (42-75); PLATELET COUNT 440 10^3/uL (130-400); RED BLOOD COUNT 4.29 10^6/uL (4.35-5.85); RED CELL DISTRIBUTION WIDTH 12.8 % (10.0-14.5)
[2018-05-20] MEDS ORDERED: LORazepam INJ 2 MG/ML (ATIVAN) VIAL IVP ONE (22:45)
[2018-05-20] MEDS ORDERED: fentaNYL INJECTION 100 MCG/2 ML AMP IVP ONE (22:45)
[2018-05-20 23:00] LABS: ALANINE AMINOTRANSFERASE 13 U/L (0-55); ALBUMIN 4.2 GM/DL (3.2-4.5); ALKALINE PHOSPHATASE 88 U/L (40-136); BILIRUBIN,TOTAL 0.2 MG/DL (0.1-1.0); BUN/CREATININE RATIO 21; CALCIUM 9.5 MG/DL (8.5-10.1); CARBON DIOXIDE 22 MMOL/L (21-32); CHLORIDE 105 MMOL/L (98-107); CREATININE SERUM 0.78 MG/DL (0.60-1.30); GFR ESTIMATED > 60; GLUCOSE 89 MG/DL (70-105); MAGNESIUM 2.3 MG/DL (1.8-2.4); SODIUM 139 MMOL/L (135-145); TOTAL PROTEIN 8.1 GM/DL (6.4-8.2)
[2018-05-21] MEDS ORDERED: NS IV 1000 ML 1,000 ML IV ONE (00:06)
[2018-05-21] MEDS ORDERED: ONDANSETRON 4 MG/2 ML (SDV) Z0FRAN IVP ONE (00:30)
[2018-05-21 01:06] LABS: BILIRUBIN,URINE NEGATIVE (NEGATIVE); CLARITY,URINE CLEAR; COLOR,URINE YELLOW; GLUCOSE, URINE (UA) NEGATIVE (NEGATIVE); KETONES,URINE 1+ (NEGATIVE); LEUKOCYTE ESTERASE ,URINE NEGATIVE (NEGATIVE); NITRITE,URINE NEGATIVE (NEGATIVE); PH,URINE 5 (5-9); PROTEIN,URINE NEGATIVE (NEGATIVE); UROBILINOGEN,URINE NORMAL (NORMAL)
[2018-05-21 01:15] LABS: BACTERIA,URINE TRACE /HPF; RBC,URINE 0-2 /HPF
[2018-05-21] MEDS ORDERED: NS 250 ML (IVPB) BAG IV ONE (01:45)
[2018-05-21] MEDS ORDERED: IOHEXOL 350 MG/ML 100 ML (OMNIPAQUE 350) VIAL IV ONE (01:45)
[2018-05-21] MEDS ORDERED: KETOROLAC 30 MG/ML VIAL IVP ONE (02:15)
[2018-05-21] MEDS ORDERED: METOCLOPRAMIDE INJ 10 MG/2 ML (REGLAN) IVP ONE (02:15)
[2018-05-21] MEDS ORDERED: METO5TAB75 PO (02:21)
--- NOTE | 2018-05-21 02:21 | ED Abdominal Pain ---
General Chief Complaint: Abdominal/GI Problems Stated Complaint: ABD PAIN Nursing Triage Note: PT AMB TO ROOM #5 GUARDING STOMACH AND TEARFUL. A&OX4. AT SIDE. PT REPORTS SEVERE LOWER LT ABD PAIN AND NAUSEA. PT REPORTS SHE HAS NOT HAD A NORMAL BM SINCE 05/02/18. REPORTS SHE WAS SEEN AT [facility] 05/16/18 WHERE SHE HAD 3 ENEMAS WITH NO RELIEF. UPON ARRIVAL TO ED PT UNABLE TO LAY OR SIT DOWN AND ONLY FINDS MINIMAL RELIEF WHILE STANDING. BOWEL SOUNDS ACTIVE IN ALL FOUR QUADRANTS. Sepsis Screen: No Definite Risk Source of Information: Patient, Old Records Exam Limitations: No Limitations History of Present Illness Date Seen by Provider: May 20, 2018 Time Seen by Provider: 22:30 Initial Comments Kaleigh is a 27-year-old woman who presents to the emergency room with complaints of diffuse abdominal pain, worse in the left lower quadrant. She has been struggling with constipation for a couple of weeks with worsening abdominal pain. She has been trying MiraLAX, magnesium citrate, and Dulcolax without benefit. Last Saturday she even had enemas performed. This resulted in only a small liquidy stool. She has had no vomiting today but has had vomiting in recent days. She is taking Phenergan for nausea. She reports having a fever up to 100 at home but is afebrile at this time. Patient has a significant history of abdominal problems, most notably endometriosis. She has had exploratory laparoscopy, complete hysterectomy, and section. Dr. Sutton is her primary care provider and Dr. Cheema is her surgeon. She arrives in moderate distress due to her abdominal pain. Patient has had 2 x- rays in the past 2 weeks. They demonstrated at the most moderate stool. Allergies and Home Medications Allergies Coded Allergies: No Known Drug Allergies (Unverified , 08/06/17) Home Medications Metoclopramide HCl 5 Mg Tablet, 5 MG PO Q6H PRN for NAUSEA/VOMITING Prescribed by: ZINA KHAN on 05/21/18 0221 [Estrogen Pill] , DAILY, (Reported) Patient Home Medication List Home Medication List Reviewed: Yes Review of Systems Review of Systems Constitutional: no symptoms reported EENTM: No Symptoms Reported Respiratory: No Symptoms Reported Cardiovascular: No Symptoms Reported Gastrointestinal: See HPI Genitourinary: No Symptoms Reported Musculoskeletal: no symptoms reported Skin: no symptoms reported Psychiatric/Neurological: No Symptoms Reported Endocrine: No Symptoms Reported Hematologic/Lymphatic: No Symptoms Reported Past Weihsdd-Bryagl-Lunzog Hx Past Med/Social Hx: Reviewed Nursing Past Med/Soc Hx Patient Social History Alcohol Use: Denies Use Recreational Drug Use: No 2nd Hand Smoke Exposure: No Recent Foreign Travel: No Contact w/Someone Who Travel: No Recent Infectious Disease Expo: No Recent Hopitalizations: No Physical Abuse: No Sexual Abuse: No Seasonal Allergies Seasonal Allergies: No Past Medical History Surgeries: Yes (DIAGNOSTIC LAPAROSCOPIES) Section, 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 Respiratory: No Cardiac: No Neurological: No : No 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 Disorders: Yes Female 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 Disorders: Endometriosis 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 0.0oz. 90.667622xl; 31.88 BMI Method:Stated General Appearance: WD/WN, moderate distress HEENT: PERRL/EOMI, normal ENT inspection, other (mucous membranes moist) Neck: normal inspection Respiratory: lungs clear, normal breath sounds, no respiratory distress, no accessory muscle use Cardiovascular: regular rate, rhythm, no edema, no murmur Gastrointestinal: normal bowel sounds, soft, tenderness (diffuse, greater in the left lower quadrant) Extremities: normal inspection, no pedal edema Back: CVA tenderness (L) Neurologic/Psychiatric: skimmer reverberatory II-XII nml as tested, no motor/sensory deficits, alert, normal mood/affect, oriented x 3 Skin: normal color, warm/dry Progress/Results/Core Measures Results/Orders Lab Results Laboratory Tests Test 05/20/18 22:30 05/21/18 00:59 Range/Units White Blood Count 11.0 4.3-11.0 10^3/uL Red Blood Count 4.29 L 4.35-5.85 10^6/uL Hemoglobin 12.1 11.5-16.0 G/DL Hematocrit 37 35-52 % Mean Corpuscular Volume 86 80-99 FL Mean Corpuscular Hemoglobin 28 25-34 PG Mean Corpuscular Hemoglobin Concent 33 32-36 G/DL Red Cell Distribution Width 12.8 10.0-14.5 % Platelet Count 440 H 130-400 10^3/uL Mean Platelet Volume 9.3 7.4-10.4 FL Neutrophils (%) (Auto) 62 42-75 % Lymphocytes (%) (Auto) 30 12-44 % Monocytes (%) (Auto) 7 0-12 % Eosinophils (%) (Auto) 1 0-10 % Basophils (%) (Auto) 0 0-10 % Neutrophils # (Auto) 6.8 1.8-7.8 X 10^3 Lymphocytes # (Auto) 3.3 1.0-4.0 X 10^3 Monocytes # (Auto) 0.8 0.0-1.0 X 10^3 Eosinophils # (Auto) 0.2 0.0-0.3 10^3/uL Basophils # (Auto) 0.0 0.0-0.1 10^3/uL Erythrocyte Sedimentation Rate 24 H 0-20 MM/HR Sodium Level 139 135-145 MMOL/L Potassium Level 4.0 3.6-5.0 MMOL/L Chloride Level 105 98-107 MMOL/L Carbon Dioxide Level 22 21-32 MMOL/L Anion Gap 12 5-14 MMOL/L Blood Urea Nitrogen 16 7-18 MG/DL Creatinine 0.78 0.60-1.30 MG/DL Estimat Glomerular Filtration Rate > 60 BUN/Creatinine Ratio 21 Glucose Level 89 70-105 MG/DL Calcium Level 9.5 8.5-10.1 MG/DL Corrected Calcium 9.3 8.5-10.1 MG/DL Magnesium Level 2.3 1.8-2.4 MG/DL Total Bilirubin 0.2 0.1-1.0 MG/DL Aspartate Amino Transf (AST/SGOT) 16 5-34 U/L Alanine Aminotransferase (ALT/SGPT) 13 0-55 U/L Alkaline Phosphatase 88 40-136 U/L C-Reactive Protein High Sensitivity 2.57 H 0.00-0.50 MG/DL Total Protein 8.1 6.4-8.2 GM/DL Albumin 4.2 3.2-4.5 GM/DL Lipase 14 8-78 U/L Urine Color YELLOW Urine Clarity CLEAR Urine pH 5 5-9 Urine Specific [place] 1.025 H 1.016-1.022 Urine Protein NEGATIVE NEGATIVE Urine Glucose (UA) NEGATIVE NEGATIVE Urine Ketones 1+ H NEGATIVE Urine Nitrite NEGATIVE NEGATIVE Urine Bilirubin NEGATIVE NEGATIVE Urine Urobilinogen NORMAL NORMAL MG/DL Urine Leukocyte Esterase NEGATIVE NEGATIVE Urine RBC (Auto) 2+ H NEGATIVE Urine RBC 0-2 /HPF Urine WBC NONE /HPF Urine Squamous Epithelial Cells 2-5 /HPF Urine Crystals NONE /LPF Urine Bacteria TRACE /HPF Urine Casts NONE /LPF Urine Mucus LARGE H /LPF Urine Culture Indicated NO My Orders Orders - ZINA SOLO MD Cbc With Automated Diff (05/20/18 22:34) Comprehensive Metabolic Panel (05/20/18 22:34) Magnesium (05/20/18 22:34) Ua Culture If Indicated (05/20/18 22:34) Saline Lock/Iv-Start (05/20/18 22:34) Ns Iv 1000 Ml (Sodium Chloride 0.9%) (05/20/18 22:34) Fentanyl Injection (Sublimaze Injection (05/20/18 22:45) Lorazepam Injection (Ativan Injection) (05/20/18 22:45) Hs C Reactive Protein (05/20/18 23:13) Lipase (05/20/18 23:13) Erythrocyte Sedimentation Rate (05/20/18 23:13) Bladder Scan (05/20/18 23:50) Saline Lock/Iv-Start (05/21/18 00:06) Ns Iv 1000 Ml (Sodium Chloride 0.9%) (05/21/18 00:06) Ondansetron Injection (Zofran Injectio (05/21/18 00:30) Ct Abdomen/Pelvis W (05/21/18 01:17) Iohexol Injection (Omnipaque 350 Mg/Ml 1 (05/21/18 01:45) Ns (Ivpb) (Sodium Chloride 0.9%) (05/21/18 01:45) Ketorolac Injection (Toradol Injection) (05/21/18 02:15) Metoclopramide Injection (Reglan Injecti (05/21/18 02:15) Medications Given in ED Current Medications Medications Dose Ordered Sig/Carrol Route Start Time Stop Time Status Last Admin Dose Admin Fentanyl Citrate 50 mcg ONCE ONCE IVP 05/20/18 22:45 05/20/18 22:46 DC 05/20/18 22:45 50 MCG Iohexol 100 ml ONCE ONCE IV 05/21/18 01:45 05/21/18 01:55 DC 05/21/18 01:42 100 ML Ketorolac Tromethamine 15 mg ONCE ONCE IVP 05/21/18 02:15 05/21/18 02:16 DC 05/21/18 02:12 15 MG Lorazepam 0.5 mg ONCE ONCE IVP 05/20/18 22:45 05/20/18 22:46 DC 05/20/18 22:46 0.5 MG Metoclopramide HCl 5 mg ONCE ONCE IVP 05/21/18 02:15 05/21/18 02:16 DC 05/21/18 02:17 5 MG Ondansetron HCl 8 mg ONCE ONCE IVP 05/21/18 00:30 05/21/18 00:31 DC 05/21/18 00:31 8 MG Sodium Chloride 80 ml ONCE ONCE IV 05/21/18 01:45 05/21/18 01:55 DC 05/21/18 01:42 80 ML Sodium Chloride 1,000 ml @ 0 mls/hr Q0M ONCE IV 05/20/18 22:34 05/20/18 22:36 DC 05/20/18 22:43 0 MLS/HR Sodium Chloride 1,000 ml @ 0 mls/hr Q0M ONCE IV 05/21/18 00:06 05/21/18 00:09 DC 05/21/18 00:12 999 MLS/HR Vital Signs/I&O 05/20/18 22:12 Temp 98.7 Pulse 94 Resp 20 B/P (MAP) 133/84 (100) Pulse Ox 100 O2 Delivery Room Air 05/21/18 00:00 Intake Total 1000 ml Balance 1000 ml Blood Pressure Mean: 100 Progress Progress Note : Progress Note Labs were obtained and were relatively unremarkable. UA also was unremarkable. Patient initially could not void and bladder scan showed minimal urine even after 1 L of IV normal saline. A second liter of IV normal saline was administered. Patient was eventually able to urinate. Since x-rays did not explain the degree of her abdominal pain, CT scan was offered. Patient accepted CT scan to rule out other serious causes of pain. CT was obtained and revealed moderate colonic stool with no other acute abnormalities. Patient's pain was initially treated with fentanyl. She was also given Ativan to help her relax. Toradol was given for additional pain relief after review of CT scan. Zofran was initially given for nausea. Reglan was added to encourage motility. Her relatively unremarkable workup makes adhesive disease a possible contributing diagnosis. Diagnostic Imaging Diagonstic Imaging: CT Plain Films/CT/US/NM/MRI: abdomen, pelvis Comments CT abdomen and pelvis was viewed by me. [facility] report reviewed. Moderate colonic stool especially on the right and in the transverse colon. No other acute abnormalities appreciated. Departure Impression Primary Impression: Generalized abdominal pain Additional Impressions: Acute constipation Nausea and vomiting Qualified Codes: R11.2 - Nausea with vomiting, unspecified Disposition: 01 HOME, SELF-CARE Condition: Improved Departure-Patient Inst. Decision time for Depature: 02:16 Referrals: JILL SUTTON MD (PCP/Family) Primary Care Physician Patient Instructions: Acute Abdomen (Belly Pain), Adult (DC), Constipation, Adult (DC) Add. Discharge Instructions: Drink plenty of clear liquids. Consume primarily a clear liquid diet until a good bowel movement is produced. You may continue using MiraLAX and lactulose as prescribed for constipation. Try using Reglan (metoclopramide) for nausea instead of promethazine (Phenergan) . Reglan tends to encourage increased motility of the bowels and may help your constipation. As you advance your diet, eat a diet high in fiber with plenty of fruits, vegetables, and whole grains. Avoid excessive meats, cheeses, and processed foods as they may worsen your constipation. You may take Tylenol (acetaminophen) up to 1000 mg every 6 hours as needed for pain. Add ibuprofen up to 600 mg every 6 hours as needed for additional pain relief. Avoid use of narcotics or tramadol (Ultram) for treatment of pain as they may worsen constipation. Constipation may be part of your abdominal pain but may not explain it fully. If resolving constipation does not resolve your pain, seek consultation with a surgeon. Return to the emergency room if symptoms are worsening. Follow-up with your primary care provider soon as possible. All discharge instructions reviewed with patient and/or family. Voiced understanding. Scripts Metoclopramide HCl (Reglan) 5 Mg Tablet 5 MG PO Q6H PRN for NAUSEA/VOMITING, #20 TAB Prov: ZINA SOLO MD 05/21/18 Work/School Note: Work Release Form Date Seen in the Emergency Department: May 21, 2018 Return to Work: May 22, 2018 Restrictions: No Restrictions Copy Copies To 1: JILL SUTTON MD, JOSHUA T MD May 21, 2018 02:20
[2018-05-21 02:30] VITALS: BP 133/84
--- NOTE | 2018-05-21 06:26 | Diagnostic Imaging Report ---
PROCEDURE: CT abdomen and pelvis with contrast. TECHNIQUE: Multiple contiguous axial images were obtained through the abdomen and pelvis after administration of intravenous contrast. INDICATION: Abdominal pain COMPARISON: None available. FINDINGS: Lower chest: Densely calcified right lower lobe pulmonary granuloma. Otherwise, lung bases are clear. Peritoneum: No free intraperitoneal air or fluid. Liver and biliary system: The liver is normal. The gallbladder is normal. No biliary duct dilation. Spleen and Pancreas: Spleen is normal. The pancreas enhances normally without mass lesion or peripancreatic inflammatory changes. Adrenals: Normal. tract: The kidneys enhance normally without suspicious mass or obstruction. Urinary bladder is distended without wall thickening. 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. No adnexal mass. GI tract: Stomach is decompressed. No bowel obstruction. No pericolonic inflammatory changes. Appendix is not visualized but there are no inflammatory change in the right lower quadrant that would suggest appendicitis. Vasculature and Lymph nodes: Normal caliber aorta. No abdominal or pelvic lymphadenopathy. Musculoskeletal: No concerning osseous lesion. IMPRESSION: 1. No acute inflammatory or obstructive process in the abdomen or pelvis. 2. Findings are in agreement with the preliminary report. Dictated by: Dictated on workstation # [id number]
== END 2018-05-21 02:33 | disposition home or self-care (01) ==
LOC: EDUNIT# 21:24 → ER 21:25
DX: K59.00 Constipation, unspecified (principal); R11.2 Nausea with vomiting, unspecified; F41.9 Anxiety disorder, unspecified; F32.9 Major depressive disorder, single episode, unspecified; Z90.710 Acquired absence of both cervix and uterus; Z98.890 Other specified postprocedural states
CPT/HCPCS: 36415; 74177; 80053; 81000; 83690; 83735; 85025; 85652; 86141; 96361; 96374; 96375

== ENCOUNTER 2018-09-11 02:14 | Emergency (ER) | payer OTHER ==
[~2018-09-11] VITALS: Ht 162.6 cm; Wt 86.2 kg
[~2018-09-11 02:14] MED LIST changes: -ONDA4TAB11 PO; -OXYC1TAB87 PO
[2018-09-11 02:33] LABS: CLARITY,URINE CLEAR; COLOR,URINE YELLOW; GLUCOSE, URINE (UA) NEGATIVE (NEGATIVE); KETONES,URINE 1+ (NEGATIVE); LEUKOCYTE ESTERASE ,URINE 1+ (NEGATIVE); NITRITE,URINE NEGATIVE (NEGATIVE); PH,URINE 5 (5-9); PROTEIN,URINE 2+ (NEGATIVE); UROBILINOGEN,URINE 1 MG/DL (NORMAL)
[2018-09-11] MEDS ORDERED: NS IV 1000 ML 1,000 ML IV ONE (02:36)
[2018-09-11] MEDS ORDERED: ONDANSETRON 4 MG/2 ML (SDV) Z0FRAN IVP ONE (02:45)
[2018-09-11] MEDS ORDERED: fentaNYL INJECTION 100 MCG/2 ML AMP IVP ONE ×2 (02:45→03:30)
[2018-09-11 02:46] LABS: BACTERIA,URINE LARGE /HPF; RBC,URINE 0-2 /HPF; WBC,URINE 0-2 /HPF
[2018-09-11 02:47] LABS: BILIRUBIN,URINE 2+ (NEGATIVE)
[2018-09-11 02:57] LABS: BASOPHILS % (AUTO) 0 % (0-10); EOSINOPHILS # (AUTO) 0.1 10^3/uL (0.0-0.3); EOSINOPHILS % (AUTO) 1 % (0-10); HEMATOCRIT 37 % (35-52); HEMOGLOBIN 11.7 G/DL (11.5-16.0); LYMPHOCYTES # (AUTO) 1.2 X 10^3 (1.0-4.0); LYMPHOCYTES % (AUTO) 16 % (12-44); MEAN CORPUSCULAR HEMOGLOBIN 27 PG (25-34); MEAN CORPUSCULAR HGB CONC 32 G/DL (32-36); MEAN CORPUSCULAR VOLUME 83 FL (80-99); MEAN PLATELET VOLUME 9.4 FL (7.4-10.4); MONOCYTES # (AUTO) 0.8 X 10^3 (0.0-1.0); MONOCYTES % (AUTO) 10 % (0-12); NEUTROPHILS # (AUTO) 5.6 X 10^3 (1.8-7.8); NEUTROPHILS % (AUTO) 73 % (42-75); PLATELET COUNT 326 10^3/uL (130-400); RED CELL DISTRIBUTION WIDTH 13.8 % (10.0-14.5); WHITE BLOOD COUNT 7.6 10^3/uL (4.3-11.0)
[2018-09-11 03:15] LABS: ALANINE AMINOTRANSFERASE 9 U/L (0-55); ALBUMIN 4.1 GM/DL (3.2-4.5); ALKALINE PHOSPHATASE 95 U/L (40-136); BILIRUBIN,TOTAL 0.4 MG/DL (0.1-1.0); BUN/CREATININE RATIO 22; CALCIUM 8.9 MG/DL (8.5-10.1); CARBON DIOXIDE 20 MMOL/L (21-32); CHLORIDE 106 MMOL/L (98-107); CREATININE SERUM 0.78 MG/DL (0.60-1.30); GFR ESTIMATED > 60; GLUCOSE 108 MG/DL (70-105); LIPASE 6 U/L (8-78); POTASSIUM 3.3 MMOL/L (3.6-5.0); SODIUM 138 MMOL/L (135-145); TOTAL PROTEIN 8.1 GM/DL (6.4-8.2)
[2018-09-11] MEDS ORDERED: RX-ONDANSETRON 4 MG ODT (ZOFRAN) PPK #4 SL STA (03:57)
[2018-09-11] MEDS ORDERED: oxyCODONE/APAP 5/325MG (PERCOCET 5) TABLET PO ONE (04:00)
[2018-09-11] MEDS ORDERED: OXYC1TAB87 PO (04:01)
[2018-09-11] MEDS ORDERED: ONDA4TAB11 PO (04:01)
--- NOTE | 2018-09-11 04:01 | ED Abdominal Pain ---
General Chief Complaint: Abdominal/GI Problems Stated Complaint: ABD & BACK PAIN Nursing Triage Note: ABDOMINAL/BACK PAIN Sepsis Screen: No Definite Risk Source of Information: Patient Exam Limitations: No Limitations History of Present Illness Date Seen by Provider: Sep 11, 2018 Time Seen by Provider: 02:20 Initial Comments This 27-year-old young lady presents to the emergency room with right flank and abdominal pain. Patient started vomiting and developed less intense pain on September 09. Symptoms have intensified since then. She has pain with breathing , urination, movement, and attempts to pass bowel movements. Pain is focused in the right upper quadrant. It radiates into her right upper back. Allergies and Home Medications Allergies Coded Allergies: No Known Drug Allergies (Unverified , 08/06/17) Home Medications Ondansetron 4 Mg Tab.rapdis, 4 MG PO Q4H PRN for NAUSEA/VOMITING Prescribed by: ZINA KHAN on 09/11/18 0401 Oxycodone HCl/Acetaminophen 1 Each Tablet, 1 EACH PO Q4H PRN for PAIN-MODERATE Prescribed by: ZINA KHAN on 09/11/18 0401 [Estrogen Pill] , DAILY, (Reported) Patient Home Medication List Home Medication List Reviewed: Yes Review of Systems Review of Systems Constitutional: no symptoms reported EENTM: No Symptoms Reported Respiratory: No Symptoms Reported Cardiovascular: No Symptoms Reported Gastrointestinal: See HPI Genitourinary: See HPI Musculoskeletal: no symptoms reported Skin: no symptoms reported Psychiatric/Neurological: No Symptoms Reported Endocrine: No Symptoms Reported Past Wybyikh-Vrouxd-Ewatoj Hx Past Med/Social Hx: Reviewed Nursing Past Med/Soc Hx Patient Social History Alcohol Use: Denies Use Recreational Drug Use: No Smoking Status: Never a Smoker 2nd Hand Smoke Exposure: No Recent Foreign Travel: No Contact w/Someone Who Travel: No Recent Infectious Disease Expo: No Recent Hopitalizations: No Immunizations Up To Date Tetanus Booster (TDap): Unknown Seasonal Allergies Seasonal Allergies: No Past Medical History Surgeries: Yes (DIAGNOSTIC LAPAROSCOPIES) Appendectomy, Section, 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 Respiratory: No Cardiac: No Neurological: No : No 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 Disorders: Yes Female 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 Disorders: Endometriosis 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 0.0oz. 86.396638of; 31.88 BMI Method:Stated General Appearance: WD/WN, moderate distress HEENT: PERRL/EOMI, normal ENT inspection Neck: normal inspection Respiratory: lungs clear, normal breath sounds, no respiratory distress, no accessory muscle use Cardiovascular: no edema, no murmur, tachycardia Gastrointestinal: normal bowel sounds, soft, tenderness (Right upper quadrant and right flank) Extremities: normal inspection, no pedal edema Neurologic/Psychiatric: motor boss II-XII nml as tested, no motor/sensory deficits, alert, normal mood/affect, oriented x 3 Skin: normal color, warm/dry Progress/Results/Core Measures Results/Orders Lab Results Laboratory Tests Test 09/11/18 02:28 09/11/18 02:45 Range/Units Urine Color YELLOW Urine Clarity CLEAR Urine pH 5 5-9 Urine Specific [place] 1.025 H 1.016-1.022 Urine Protein 2+ H NEGATIVE Urine Glucose (UA) NEGATIVE NEGATIVE Urine Ketones 1+ H NEGATIVE Urine Nitrite NEGATIVE NEGATIVE Urine Bilirubin 2+ H NEGATIVE Urine Urobilinogen 1 NORMAL MG/DL Urine Leukocyte Esterase 1+ H NEGATIVE Urine RBC (Auto) 3+ H NEGATIVE Urine RBC 0-2 /HPF Urine WBC 0-2 /HPF Urine Squamous Epithelial Cells 10-25 H /HPF Urine Crystals NONE /LPF Urine Bacteria LARGE H /HPF Urine Casts NONE /LPF Urine Mucus LARGE H /LPF Urine Culture Indicated NO White Blood Count 7.6 4.3-11.0 10^3/uL Red Blood Count 4.40 4.35-5.85 10^6/uL Hemoglobin 11.7 11.5-16.0 G/DL Hematocrit 37 35-52 % Mean Corpuscular Volume 83 80-99 FL Mean Corpuscular Hemoglobin 27 25-34 PG Mean Corpuscular Hemoglobin Concent 32 32-36 G/DL Red Cell Distribution Width 13.8 10.0-14.5 % Platelet Count 326 130-400 10^3/uL Mean Platelet Volume 9.4 7.4-10.4 FL Neutrophils (%) (Auto) 73 42-75 % Lymphocytes (%) (Auto) 16 12-44 % Monocytes (%) (Auto) 10 0-12 % Eosinophils (%) (Auto) 1 0-10 % Basophils (%) (Auto) 0 0-10 % Neutrophils # (Auto) 5.6 1.8-7.8 X 10^3 Lymphocytes # (Auto) 1.2 1.0-4.0 X 10^3 Monocytes # (Auto) 0.8 0.0-1.0 X 10^3 Eosinophils # (Auto) 0.1 0.0-0.3 10^3/uL Basophils # (Auto) 0.0 0.0-0.1 10^3/uL Sodium Level 138 135-145 MMOL/L Potassium Level 3.3 L 3.6-5.0 MMOL/L Chloride Level 106 98-107 MMOL/L Carbon Dioxide Level 20 L 21-32 MMOL/L Anion Gap 12 5-14 MMOL/L Blood Urea Nitrogen 17 7-18 MG/DL Creatinine 0.78 0.60-1.30 MG/DL Estimat Glomerular Filtration Rate > 60 BUN/Creatinine Ratio 22 Glucose Level 108 H 70-105 MG/DL Calcium Level 8.9 8.5-10.1 MG/DL Corrected Calcium 8.8 8.5-10.1 MG/DL Total Bilirubin 0.4 0.1-1.0 MG/DL Aspartate Amino Transf (AST/SGOT) 14 5-34 U/L Alanine Aminotransferase (ALT/SGPT) 9 0-55 U/L Alkaline Phosphatase 95 40-136 U/L Total Protein 8.1 6.4-8.2 GM/DL Albumin 4.1 3.2-4.5 GM/DL Lipase 6 L 8-78 U/L My Orders Orders - ZINA SOLO MD Ua Culture If Indicated (09/11/18 02:19) Fentanyl Injection (Sublimaze Injection (09/11/18 02:45) Ondansetron Injection (Zofran Injectio (09/11/18 02:45) Cbc With Automated Diff (09/11/18 02:36) Comprehensive Metabolic Panel (09/11/18 02:36) Lipase (09/11/18 02:36) Saline Lock/Iv-Start (09/11/18 02:36) Ns Iv 1000 Ml (Sodium Chloride 0.9%) (09/11/18 02:36) Fentanyl Injection (Sublimaze Injection (09/11/18 03:30) Oxycodone/Apap 5/325mg Tablet (Percocet (09/11/18 04:00) Rx-Ondansetron Po (Rx-Zofran Po) (09/11/18 03:57) Medications Given in ED Current Medications Medications Dose Ordered Sig/Carrol Route Start Time Stop Time Status Last Admin Dose Admin Fentanyl Citrate 75 mcg ONCE ONCE IVP 09/11/18 02:45 09/11/18 02:46 DC 09/11/18 02:47 75 MCG Fentanyl Citrate 75 mcg ONCE ONCE IVP 09/11/18 03:30 09/11/18 03:31 DC 09/11/18 03:24 75 MCG Ondansetron HCl 8 mg ONCE ONCE IVP 09/11/18 02:45 09/11/18 02:46 DC 09/11/18 02:47 8 MG Oxycodone/ Acetaminophen 1 tab ONCE ONCE PO 09/11/18 04:00 09/11/18 04:01 DC 09/11/18 04:04 1 TAB Sodium Chloride 1,000 ml @ 0 mls/hr Q0M ONCE IV 09/11/18 02:36 09/11/18 02:38 DC 09/11/18 02:47 0 MLS/HR Vital Signs/I&O 09/11/18 09/11/18 02:24 04:09 Temp 99.0 99.0 Pulse 103 79 Resp 20 16 B/P (MAP) 106/67 (80) 107/77 (87) Pulse Ox 98 97 O2 Delivery Room Air Room Air Blood Pressure Mean: 80 Progress Progress Note : Progress Note Labs were unremarkable. Patient received a liter of IV fluid, Zofran for nausea , and fentanyl for pain control. Chart from prior ER visit was reviewed along with CT exam. No stones were seen in the kidneys or ureteral tract. No mineralized gallstones were seen in the gallbladder. Repeat CT was felt to be less valuable today than ultrasound as her symptoms are strongly suggestive of gallbladder disease. Ultrasound workers compensation claims examiner is not available at this time. An outpatient prescription for gallbladder ultrasound first thing in the morning was provided. Patient was dispensed a take-home pack of Zofran. She was also given a Percocet before dismissal. She was instructed to have nothing to eat or drink until her ultrasound. Symptoms were controlled at the time of dismissal. Departure Impression Primary Impression: Right upper quadrant pain Additional Impression: Nausea and vomiting Qualified Codes: R11.2 - Nausea with vomiting, unspecified Disposition: 01 HOME, SELF-CARE Condition: Improved Departure-Patient Inst. Decision time for Depature: 03:59 Referrals: JILL BABB MD (PCP/Family) Primary Care Physician Patient Instructions: Acute Abdomen (Belly Pain), Adult (DC) Add. Discharge Instructions: Do not eat or drink anything until after your gallbladder ultrasound. Return to the emergency room before 08:00 with your order form for the stat gallbladder ultrasound. Dissolve Zofran under your tongue every 4 hours as needed for nausea and vomiting. You may return to the emergency room if your symptoms are intolerable or if you develop new symptoms such as fever. All discharge instructions reviewed with patient and/or family. Voiced understanding. Scripts Ondansetron (Ondansetron Odt) 4 Mg Tab.rapdis 4 MG PO Q4H PRN for NAUSEA/VOMITING, #10 TAB Prov: ZINA SOLO MD 09/11/18 Oxycodone HCl/Acetaminophen (Percocet 5-325 mg Tablet) 1 Each Tablet 1 EACH PO Q4H PRN for PAIN-MODERATE MDD 6, #10 TAB Prov: ZINA SOLO MD 09/11/18 ZINA SOLO MD Sep 11, 2018 04:01
[2018-09-11 04:09] VITALS: BP 107/77
== END 2018-09-11 04:09 | disposition home or self-care (01) ==
LOC: EDUNIT# 02:14 → ER 02:17
DX: R10.11 Right upper quadrant pain (principal); R11.2 Nausea with vomiting, unspecified; F41.9 Anxiety disorder, unspecified; F32.9 Major depressive disorder, single episode, unspecified; Z90.710 Acquired absence of both cervix and uterus; Z90.49 Acquired absence of other specified parts of digestive tract; Z98.890 Other specified postprocedural states; Z87.448 Personal history of other diseases of urinary system
CPT/HCPCS: 36415; 80053; 81000; 83690; 85025

== ENCOUNTER → 2018-09-11 | Outpatient (CLI) | payer OTHER ==
[~2018-09-11] MED LIST changes: +METO5TAB75 PO; +ONDA4TAB11 PO; +OXYC1TAB87 PO
--- NOTE | 2018-09-11 10:19 | Diagnostic Imaging Report ---
PROCEDURE: US Gallbladder. TECHNIQUE: Multiple real-time grayscale images were obtained over the right upper quadrant in various projections. INDICATION: Right upper quadrant pain. FINDINGS: The liver is normal in size at 15.4 cm. No discrete liver mass is identified. The portal vein is patent and shows normal direction of flow. Gallbladder is without stones or sludge. No wall thickening or biliary ductal dilatation is seen. The pancreas is obscured by bowel gas. The right kidney is unremarkable. There is no ascites. IMPRESSION: Unremarkable gallbladder ultrasound. Dictated by: Dictated on workstation # [id number]
== END ==
LOC: RAD 08:08
PROVIDERS: ATTEND Family Medicine
DX: R10.11 Right upper quadrant pain (principal); R11.2 Nausea with vomiting, unspecified
CPT/HCPCS: 76705

== ENCOUNTER → 2018-09-15 | Outpatient (CLI) | payer OTHER ==
[~2018-09-15] MED LIST changes: +CATHETER FLUSH 10 ML SYR IV PRN; +HYDR-34 PO; +NORG1TAB14 PO; +ONDA4TAB11 PO; +OXYC1TAB87 PO
--- NOTE | 2018-09-15 19:04 | Diagnostic Imaging Report ---
INDICATION: Right upper quadrant pain. Patient was administered 5.1 mCi technetium 99m Choletec intravenously and imaging of the abdomen was performed. At 60 minutes, patient ingested 8 ounces of Ensure and gallbladder ejection fraction was calculated. There is homogeneous uptake of activity by the liver. There appears to be prompt excretion of activity into the common duct and gallbladder. Normal passage of activity into the small bowel is seen. Gallbladder ejection fraction is calculated to be 44%. Normal values are 33% or greater. IMPRESSION: Normal HIDA scan and gallbladder ejection fraction. Dictated by: Dictated on workstation # [id number]
--- NOTE | 2018-09-15 20:17 | HISTORY AND PHYSICAL ---
DATE OF SERVICE: ATTENDING PRIMARY CARE PHYSICIAN: Susy Sutton MD. HISTORY OF PRESENT ILLNESS: The patient is a 27-year-old female who has struggled for the past 2 years with abdominal pain, distention as well as intermittent episodes of nausea and vomiting. She reports that this was initially mild; however, has worsened, has become much more frequent as well as much more severe. She did have an episode of approximately one week ago, which was significant and severe and she presented to the Emergency Department. An ultrasound was performed which did not show any gallstones. Staff was able to get her pain under control and she was able to tolerate liquids and she was discharged home. A HIDA scan was performed and she did show normal ejection fraction of 44%. However, when she went home, she some severe reproduction of symptoms, which included abdominal distention, pain in the right upper abdominal quadrant with radiation towards the back as well as several episodes of nausea and vomiting considered a positive test for biliary dyskinesia. PAST MEDICAL HISTORY: Endometriosis. PAST SURGICAL HISTORY: Total hysterectomy, section, diagnostic laparoscopy x2. ALLERGIES: No known drug allergies. MEDICATIONS: Sprintec daily, Prozac 20 mg daily. SOCIAL HISTORY: Negative smoke, negative alcohol. FAMILY HISTORY: Noncontributory. VITAL SIGNS: Stable, afebrile. REVIEW OF SYSTEMS: Well-nourished female, currently guarded secondary to the abdominal distention and nausea. No hematemesis, no coffee ground emesis. No diarrhea, constipation, no red blood per rectum. No chest pain, palpitations, diaphoresis. No shortness of breath or difficulty breathing. No fever, chills, no recent inadvertent weight loss. All other review of systems negative. PHYSICAL EXAMINATION: CHEST: Clear. Good breath sounds bilaterally. HEART: Regular, no murmurs. HEENT: No scleral icterus. NECK: No cervical lymphadenopathy. EXTREMITIES: No lower extremity edema. Negative Homans sign. ABDOMEN: Soft, nondistended. There is pain in the right upper abdominal quadrant upon deep palpation and a positive Guillory sign. Negative peritoneal signs. SKIN: Warm, dry. ASSESSMENT AND PLAN: A 27-year-old female with symptomatic related to dyskinesia. We will have her continue with clear liquids and low fat foods for now as well as bland foods. We will start her on a pain medication as well as Zofran as needed for pain and nausea. We will also schedule her for an outpatient laparoscopic cholecystectomy. Job ID: [id number] DocumentID: [id number] Dictated Date: 09/15/2018 19:42:39 Civil Transportation Engineer Date: 09/15/2018 20:16:48 Dictated By: DION MOORE MD MTDD
== END ==
LOC: CARD 13:06
PROVIDERS: ATTEND Surgery
DX: R11.2 Nausea with vomiting, unspecified (principal)
CPT/HCPCS: 78227

== ENCOUNTER 2018-09-17 05:34 | Outpatient (CLI) | payer OTHER ==
[~2018-09-17] VITALS: Ht 162.6 cm; Wt 86.2 kg
[~2018-09-17 05:34] MED LIST changes: -CATHETER FLUSH 10 ML SYR IV PRN; -HYDR-34 PO; -NORG1TAB14 PO
[2018-09-17] MEDS ORDERED: NORG1TAB14 PO (10:11)
[2018-09-18] MEDS ORDERED: HYDR-34 PO (13:36)
== END 2018-09-17 10:26 | disposition home or self-care (01) ==
LOC: PREOP 05:34
PROVIDERS: ATTEND Surgery
DX: Z01.818 Encounter for other preprocedural examination (principal)

== ENCOUNTER → 2018-12-29 | Outpatient (CLI) | payer OTHER ==
[~2018-12-29] MED LIST changes: +HYDR-34 PO; +NORG1TAB14 PO
--- NOTE | 2018-12-29 09:22 | Diagnostic Imaging Report ---
PROCEDURE: US Thyroid. TECHNIQUE: Multiple real-time grayscale images were obtained of the thyroid in various projections. INDICATION: Enlarged thyroid. No prior studies are available for comparison. FINDINGS: Right lobe of the thyroid measures 5.4 x 1.8 x 1.4 cm and the left lobe measures 5.1 x 1.7 x 1.6 cm. Isthmus is 3 mm in thickness. No discrete thyroid mass is detected. Both lobes demonstrate fairly homogeneous echotexture. IMPRESSION: Unremarkable thyroid ultrasound. Dictated by: Dictated on workstation # [id number]
== END ==
LOC: RAD 08:25
PROVIDERS: ATTEND Nurse Practitioner Family
DX: E04.9 Nontoxic goiter, unspecified (principal)
CPT/HCPCS: 76536

== ENCOUNTER → 2021-04-05 | Outpatient (CLI) | payer OTHER ==
[~2021-04-05] MED LIST changes: +GADOBUTROL 10 MMOL/10 ML (GADAVIST) VIAL IV ONE
--- NOTE | 2021-04-05 11:34 | Diagnostic Imaging Report ---
PROCEDURE: MR imaging of the brain with and without contrast. TECHNIQUE: Multiplanar, multisequence MR imaging of the brain was performed with and without contrast. INDICATION: Papilledema and increased intracranial pressure. FINDINGS: Ventricles and sulci are within normal limits for size. Nayak and white matter signal intensities are unremarkable. There is no restricted diffusion to indicate an infarct. Globes are intact. There is no evidence of intraorbital lesion. No hemorrhage is identified. There are flow voids in the expected locations at the skull base. There is no abnormal contrast enhancement. There is leftward deviation of the nasal septum. Pituitary gland is unremarkable, and there is no evidence of suprasellar lesion. IMPRESSION: Unremarkable MRI of the brain without orbital abnormality detected. Dictated by: Dictated on workstation # [id number]
== END ==
LOC: RAD 10:15
PROVIDERS: ATTEND Ophthalmology
DX: H47.11 Papilledema associated with increased intracranial pressure (principal); H47.333 Pseudopapilledema of optic disc, bilateral; H93.19 Tinnitus, unspecified ear; F32.9 Major depressive disorder, single episode, unspecified; G43.909 Migraine, unspecified, not intractable, without status migrainosus; H53.483 Generalized contraction of visual field, bilateral; Z79.899 Other long term (current) drug therapy
CPT/HCPCS: 70553

== ENCOUNTER 2021-09-04 10:18 | Emergency (ER) | payer OTHER ==
[~2021-09-04] VITALS: Ht 162 cm; Wt 83.0 kg
[~2021-09-04 10:18] MED LIST changes: +CYCL10TA25 PO; -CYCL10TA9 PO; -GADOBUTROL 10 MMOL/10 ML (GADAVIST) VIAL IV ONE
[2021-09-04] MEDS ORDERED: NS IV 1000 ML 1,000 ML IV STA (11:03)
--- NOTE | 2021-09-04 11:06 | ED GI ---
General Chief Complaint: Abdominal/GI Problems Stated Complaint: DIARRHEA,DEHYDRATION X 5DAYS Nursing Triage Note: ARRIVED VIA AMB TO ROOM 08 ET COMPLAINS OF DIARRHEA SINCE SATURDAY. 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 Symptoms started last . She states symptoms started with watery diarrhea. She report 5-6 episodes daily for the first few days. She had several bouts of diarrhea on Saturday. Has not been able to eat or drink as this makes her sick and causes her to vomit. She denies of any dark tarry stools, mucus in her stool. She reports abdominal cramping located to her upper abdomen and lower abdomen. This appears to be worse with the diarrhea and vomiting. decreased urination without any pain. History of hysterectomy, appendectomy, cholecystectomy. Patient states she feels weak and fatigued with decreased energy level. She is up-to-date on her immunizations. She denies chest pain, cough, shortness of breath, nasal congestion, sore throat, fever. Patient in no acute distress. She states she feels dehydrated. Allergies and Home Medications Allergies Coded Allergies: No Known Drug Allergies (Unverified , 08/06/17) Patient Home Medication List Home Medication List Reviewed: Yes Dicyclomine HCl (Dicyclomine HCl) 20 Mg Tablet, 20 MG PO TID PRN for PAIN-MILD (1-4) Prescribed by: RG ROACH on 09/04/21 1302 Fluoxetine HCl (Prozac) 20 Mg Capsule, 20 MG PO DAILY, (Reported) Entered as Reported by: ALLI MARVIN on 08/31/17 1107 Hydrocodone Bit/Acetaminophen (Lortab 7.5 Mg Tablet) 1 Ea Tablet, 1-2 EA PO Q4- 6HR PRN for PAIN-MODERATE Prescribed by: BRII PEÑA on 09/18/18 1336 Norgestimate-Ethinyl Estradiol (Sprintec 28 Day Tablet) 1 Each Tablet, 1 EACH PO DAILY, (Reported) Entered as Reported by: YVON GIBBONS on 09/17/18 1011 Ondansetron (Ondansetron Odt) 4 Mg Tab.rapdis, 4 MG PO Q4H PRN for NAUSEA/VOMITING Prescribed by: ZINA KHAN on 09/11/18 0401 Ondansetron (Ondansetron Odt) 4 Mg Tab.rapdis, 4 MG PO Q6H PRN for NAUSEA-1ST LINE Prescribed by: RG ROACH on 09/04/21 1302 Oxycodone HCl/Acetaminophen (Percocet 5-325 mg Tablet) 1 Each Tablet, 1 EACH PO Q4H PRN for PAIN-MODERATE Prescribed by: ZINA KHAN on 09/11/18 0401 Review of Systems Review of Systems Constitutional: No chills; malaise, weakness EENTM: No Eye Pain, No Ear Drainage, No Ear Pain Respiratory: Denies Cough, Denies SOA With Exertion, Denies SOA at Rest Cardiovascular: Denies Chest Pain, Denies Edema Gastrointestinal: Abdominal Pain, Diarrhea, Nausea; Denies Rectal Bleeding; Vomiting Genitourinary: Denies Burning, Denies Drainage, Denies Frequency Musculoskeletal: No back pain, No muscle pain, No muscle stiffness Skin: No change in color, No change in hair/nails All Other Systems Reviewed Negative Unless Noted: Yes Past Qzualby-Dkfoaf-Jdlnqw Hx Patient Social History Substance use?: No Alcohol Use?: No Immunizations Up To Date Tetanus Booster (TDap): Unknown Second COVID19 Vaccination Trey: 11/13 COVID19 Vaccine Biology Tutor: PENNIE Seasonal Allergies Seasonal Allergies: Yes Past Medical History Surgeries: Yes (DIAGNOSTIC LAPAROSCOPIES) Appendectomy, Section, 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 Respiratory: No Cardiac: No Neurological: No 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 Disorders: Yes Female 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 Disorders: Endometriosis [employer] History: 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 Sexually Transmitted Disease: No HIV/AIDS: No Genitourinary: No Gastrointestinal: Yes Gall Bladder Disease Musculoskeletal: No Endocrine: No HEENT: Yes (GLASSES) Loss of Vision: Bilateral Hearing Impairment: Denies Cancer: No Psychosocial: Yes (HX) Anxiety, Depression Integumentary: No Blood Disorders: No Adverse Reaction/Blood Tranf: No (N/A) Family Medical History No Pertinent Family Hx Physical Exam Vital Signs Vital Signs - First Documented 09/04/21 10:37 Temp 36.6 Pulse 85 Resp 16 B/P (MAP) 123/93 (103) Pulse Ox 99 O2 Delivery Room Air Capillary Refill : Less Than 3 Seconds Height/Weight/BMI Height: 5'4.00" Weight: 190lbs. 0.0oz. 86.968097fm; 31.00 BMI Method:Stated General Appearance: WD/WN, no apparent distress HEENT: PERRL/EOMI, normal ENT inspection, TMs normal, pharynx normal Neck: non-tender, full range of motion, supple, normal inspection Respiratory: chest non-tender, lungs clear, normal breath sounds, no respiratory distress, no accessory muscle use Cardiovascular: regular rate, rhythm, no edema, no gallop, no JVD, no murmur Gastrointestinal: normal bowel sounds, non tender, no organomegaly, no pulsatile mass, tenderness (Epigastric tenderness on palpation) Extremities: normal range of motion, non-tender, normal inspection, no pedal edema Back: normal inspection, no CVA tenderness, no vertebral tenderness Neurologic/Psychiatric: sander and buffer II-XII nml as tested, no motor/sensory deficits, alert, normal mood/affect, oriented x 3 Skin: normal color, warm/dry Progress/Results/Core Measures Results/Orders Lab Results Laboratory Tests Test 09/04/21 10:35 09/04/21 11:55 09/04/21 12:07 Range/Units White Blood Count 5.6 4.3-11.0 10^3/uL Red Blood Count 5.00 3.80-5.11 10^6/uL Hemoglobin 14.5 11.5-16.0 g/dL Hematocrit 44 35-52 % Mean Corpuscular Volume 88 80-99 fL Mean Corpuscular Hemoglobin 29 25-34 pg Mean Corpuscular Hemoglobin Concent 33 32-36 g/dL Red Cell Distribution Width 12.7 10.0-14.5 % Platelet Count 409 H 130-400 10^3/uL Mean Platelet Volume 9.9 9.0-12.2 fL Immature Granulocyte % (Auto) 1 % Neutrophils (%) (Auto) 48 42-75 % Lymphocytes (%) (Auto) 36 12-44 % Monocytes (%) (Auto) 12 0-12 % Eosinophils (%) (Auto) 2 0-10 % Basophils (%) (Auto) 0 0-10 % Neutrophils # (Auto) 2.7 1.8-7.8 10^3/uL Lymphocytes # (Auto) 2.0 1.0-4.0 10^3/uL Monocytes # (Auto) 0.7 0.0-1.0 10^3/uL Eosinophils # (Auto) 0.1 0.0-0.3 10^3/uL Basophils # (Auto) 0.0 0.0-0.1 10^3/uL Immature Granulocyte # (Auto) 0.1 0.0-0.1 10^3/uL Sodium Level 141 135-145 MMOL/L Potassium Level 3.0 L 3.6-5.0 MMOL/L Chloride Level 108 H 98-107 MMOL/L Carbon Dioxide Level 19 L 21-32 MMOL/L Anion Gap 14 5-14 MMOL/L Blood Urea Nitrogen 12 7-18 MG/DL Creatinine 0.92 0.60-1.30 MG/DL Estimat Glomerular Filtration Rate 73 BUN/Creatinine Ratio 13 Glucose Level 109 H 70-105 MG/DL Calcium Level 9.7 8.5-10.1 MG/DL Corrected Calcium 9.3 8.5-10.1 MG/DL Total Bilirubin 0.4 0.1-1.0 MG/DL Aspartate Amino Transf (AST/SGOT) 21 5-34 U/L Alanine Aminotransferase (ALT/SGPT) 25 0-55 U/L Alkaline Phosphatase 121 40-136 U/L C-Reactive Protein High Sensitivity 3.12 H 0.00-0.50 MG/DL Total Protein 8.3 H 6.4-8.2 GM/DL Albumin 4.5 3.2-4.5 GM/DL Lipase 8 8-78 U/L Serum Test, Qualitative NEGATIVE NEGATIVE Urine Color DARK YELLOW Urine Clarity SL CLOUDY Urine pH 6.0 5-9 Urine Specific [place] >=1.030 1.016-1.022 Urine Protein TRACE H NEGATIVE Urine Glucose (UA) NEGATIVE NEGATIVE Urine Ketones TRACE H NEGATIVE Urine Nitrite NEGATIVE NEGATIVE Urine Bilirubin 1+ H NEGATIVE Urine Urobilinogen 1.0 < = 1.0 MG/DL Urine Leukocyte Esterase NEGATIVE NEGATIVE Urine RBC (Auto) TRACE-I H NEGATIVE Urine RBC 2-5 H /HPF Urine WBC 0-2 /HPF Urine Squamous Epithelial Cells 2-5 /HPF Urine Crystals PRESENT H /LPF Urine Calcium Oxalate Crystals FEW H /LPF Urine Bacteria TRACE /HPF Urine Casts NONE /LPF Urine Mucus SMALL H /LPF Urine Yeast FEW H /HPF Urine Culture Indicated NO My Orders Orders - ELLE MARTINES Cbc With Automated Diff (09/04/21 11:03) Comprehensive Metabolic Panel (09/04/21 11:03) Lipase (09/04/21 11:03) Hs C Reactive Protein (09/04/21 11:03) Ua Culture If Indicated (09/04/21 11:03) Ns Iv 1000 Ml (Sodium Chloride 0.9%) (09/04/21 11:03) Ondansetron Injection (Zofran Injectio (09/04/21 11:15) Ketorolac Injection (Toradol Injection) (09/04/21 11:15) Covid 19 Inhouse Test (09/04/21 11:03) Influenza A And B By Pcr (09/04/21 11:03) Hcg,Qualitative Serum (09/04/21 11:03) Potassium Cl 10meq/50ml Ivpb (Kcl 10 Meq (09/04/21 12:00) Potassium Chloride (Tablet) (K Dur Table (09/04/21 13:00) Medications Given in ED Current Medications Medications Dose Ordered Sig/Carrol Route Start Time Stop Time Status Last Admin Dose Admin Ketorolac Tromethamine 30 mg ONCE ONCE IVP 09/04/21 11:15 09/04/21 11:16 DC 09/04/21 11:15 30 MG Ondansetron HCl 4 mg ONCE ONCE IVP 09/04/21 11:15 09/04/21 11:16 DC 09/04/21 11:15 4 MG Potassium Chloride 20 meq ONCE ONCE PO 09/04/21 13:00 09/04/21 13:01 DC 09/04/21 13:02 20 MEQ Vital Signs/I&O 09/04/21 09/04/21 10:37 13:05 Temp 36.6 Pulse 85 80 Resp 16 16 B/P (MAP) 123/93 (103) 112/69 Pulse Ox 99 100 O2 Delivery Room Air Room Air Blood Pressure Mean: 103 Departure Communication (PCP) 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 She reports vomiting or diarrhea. Patient vital signs stable. She is afebrile. Mild epigastric tenderness. History of appendectomy and cholecystectomy. Urinalysis without evidence infection. Negative for . She does appear dehydrated. Was given a liter fluid IV potassium and oral potassium with improvement. Tolerating p.o. fluids at bedside. Patient with no surgical abdomen. She does not appear in acute distress. No cough, chest pain or shortness of breath. This appears to be viral in nature. Continue with conservative treatment at home. Discharged with Zofran and Bentyl for abdominal pain. Quarantine at home until results. Impression Primary Impression: Diarrhea Disposition: HOME, SELF-CARE Condition: Stable Departure-Patient Inst. Decision time for Depature: 13:01 Referrals: JILL BABB MD (PCP/Family) Primary Care Physician Patient Instructions: Diarrhea, Adult ED Scripts Ondansetron (Ondansetron Odt) 4 Mg Tab.rapdis 4 MG PO Q6H PRN for NAUSEA-1ST LINE, #10 TAB Prov: ELLE MARTINES 09/04/21 Dicyclomine HCl (Dicyclomine HCl) 20 Mg Tablet 20 MG PO TID PRN for PAIN-MILD (1-4), #14 TAB Prov: ELLE MARTINES 09/04/21 Work/School Note: Work Release Form Date Seen in the Emergency Department: J an 2021 Return to Work: Sep 07, 2021 ELLE MARTINES Sep 04, 2021 11:06
[2021-09-04 11:14] LABS: BASOPHILS % (AUTO) 0 % (0-10); EOSINOPHILS # (AUTO) 0.1 10^3/uL (0.0-0.3); EOSINOPHILS % (AUTO) 2 % (0-10); HEMATOCRIT 44 % (35-52); HEMOGLOBIN 14.5 g/dL (11.5-16.0); LYMPHOCYTES % (AUTO) 36 % (12-44); MEAN CORPUSCULAR HEMOGLOBIN 29 pg (25-34); MEAN CORPUSCULAR HGB CONC 33 g/dL (32-36); MEAN CORPUSCULAR VOLUME 88 fL (80-99); MEAN PLATELET VOLUME 9.9 fL (9.0-12.2); MONOCYTES # (AUTO) 0.7 10^3/uL (0.0-1.0); MONOCYTES % (AUTO) 12 % (0-12); NEUTROPHILS # (AUTO) 2.7 10^3/uL (1.8-7.8); NEUTROPHILS % (AUTO) 48 % (42-75); PLATELET COUNT 409 10^3/uL (130-400); WHITE BLOOD COUNT 5.6 10^3/uL (4.3-11.0)
[2021-09-04 11:15] LABS: ALBUMIN 4.5 GM/DL (3.2-4.5)
[2021-09-04] MEDS ORDERED: ONDANSETRON 4 MG/2 ML (SDV) Z0FRAN IVP ONE (11:15)
[2021-09-04] MEDS ORDERED: KETOROLAC 30 MG/ML VIAL IVP ONE (11:15)
[2021-09-04 11:16] LABS: CALCIUM 9.7 MG/DL (8.5-10.1)
[2021-09-04 11:17] LABS: TOTAL PROTEIN 8.3 GM/DL (6.4-8.2)
[2021-09-04 11:19] LABS: BILIRUBIN,TOTAL 0.4 MG/DL (0.1-1.0)
[2021-09-04 11:21] LABS: CREATININE SERUM 0.92 MG/DL (0.60-1.30)
[2021-09-04] MEDS ORDERED: POTASSIUM CL 10MEQ/50ML IVPB 50 ML IV SCH (12:00)
[2021-09-04 12:11] LABS: CLARITY,URINE SL CLOUDY; COLOR,URINE DARK YELLOW; GLUCOSE, URINE (UA) NEGATIVE (NEGATIVE); KETONES,URINE TRACE (NEGATIVE); LEUKOCYTE ESTERASE ,URINE NEGATIVE (NEGATIVE); NITRITE,URINE NEGATIVE (NEGATIVE); PROTEIN,URINE TRACE (NEGATIVE)
[2021-09-04 12:19] LABS: BACTERIA,URINE TRACE /HPF; BILIRUBIN,URINE 1+ (NEGATIVE); CALCIUM OXALATE CRYSTALS,UR FEW /LPF; WBC,URINE 0-2 /HPF; YEAST,URINE FEW /HPF
[2021-09-04] MEDS ORDERED: KCL 20 MEQ TAB (K-DUR) PO ONE (13:00)
[2021-09-04] MEDS ORDERED: DICY20TA PO (13:02)
[2021-09-04] MEDS ORDERED: ONDA4TAB11 PO (13:02)
[2021-09-04 13:05] VITALS: BP 112/69
== END 2021-09-04 13:05 | disposition home or self-care (01) ==
LOC: EDUNIT# 10:18 → ER 10:20
DX: R19.7 Diarrhea, unspecified (principal); F41.9 Anxiety disorder, unspecified; F32.9 Major depressive disorder, single episode, unspecified; Z20.822 Contact with and (suspected) exposure to COVID-19; Z79.899 Other long term (current) drug therapy
CPT/HCPCS: 36415; 80053; 81000; 83690; 84703; 85025; 86141; 87636

== ENCOUNTER 2022-01-20 21:05 | Emergency (ER) | payer OTHER ==
[~2022-01-20] VITALS: Ht 162.5 cm; Wt 70.3 kg
[~2022-01-20 21:05] MED LIST changes: +DICY20TA PO
[2022-01-20 21:37] VITALS: BP_SYST 115; BP_SYST 125; BP_DIAS 57; BP_DIAS 58; BP_DIAS 64
[2022-01-20] MEDS ORDERED: fentaNYL INJ 100 MCG/2 ML AMP IVP ONE (21:45)
[2022-01-20] MEDS ORDERED: ONDANSETRON 4 MG/2 ML (SDV) Z0FRAN IVP ONE (21:45)
[2022-01-20] MEDS ORDERED: LACTATED RINGERS 1,000 ML IV ONE (21:45)
[2022-01-20 21:49] LABS: ALBUMIN 4.2 GM/DL (3.2-4.5); POTASSIUM 3.1 MMOL/L (3.6-5.0)
--- NOTE | 2022-01-20 21:50 | ED Abdominal Pain ---
General Chief Complaint: Abdominal/GI Problems Stated Complaint: RECTAL BLEEDING/NAUSEA/FATIGUE/FREQUENT BM Nursing Triage Note: pt ambulatory to room. pt states she has abdominal pain in her low middle abdomen and has had multiple bowel movements today with blood in them. pt states it is bright red blood clots in the stool. pt states she has felt nauseated, faint, and dizzy today Source of Information: Patient Exam Limitations: No Limitations History of Present Illness Date Seen by Provider: January 20, 2022 Time Seen by Provider: 21:26 Initial Comments Patient to the ER by private conveyance with chief complaint she been having some bright red blood in her stools for the past several weeks however today she passed some regular stools and after that large bloody clots and loose stool with bright red blood in it. She is having a little pain starting in the last hour or so in her suprapubic region. No dysuria. She has a history of hemorrh oids, and endometriosis as well as cholecystectomy by Dr. MOORE. She been putting off going in to get a colonoscopy but when she had a large bloody red stool today she called Dr. MOORE who recommended she come to the ER. She says she felt faint after the bowel movement like she was get a pass out but has not passed out yet. She feels nauseated. She is not having any shortness of breath chest pain fevers or chills. She has not had endoscopy done in the past. She has a family history of diverticulitis and endometriosis. No personal or familial history of irritable bowel or inflammatory bowel disease Allergies and Home Medications Allergies Coded Allergies: No Known Drug Allergies (Unverified , 08/06/17) Patient Home Medication List Home Medication List Reviewed: Yes Dicyclomine HCl (Dicyclomine HCl) 20 Mg Tablet, 20 MG PO TID PRN for PAIN-MILD (1-4) Prescribed by: RG ROACH on 09/04/21 1302 Fluoxetine HCl (Prozac) 20 Mg Capsule, 20 MG PO DAILY, (Reported) Entered as Reported by: ALLI MARVIN on 08/31/17 1107 Hydrocodone Bit/Acetaminophen (Lortab 7.5 Mg Tablet) 1 Ea Tablet, 1-2 EA PO Q4- 6HR PRN for PAIN-MODERATE Prescribed by: BRII PEÑA on 09/18/18 1336 Norgestimate-Ethinyl Estradiol (Sprintec 28 Day Tablet) 1 Each Tablet, 1 EACH PO DAILY, (Reported) Entered as Reported by: YVON GIBBONS on 09/17/18 1011 Ondansetron (Ondansetron Odt) 4 Mg Tab.rapdis, 4 MG PO Q4H PRN for NAUSEA/VOMITING Prescribed by: ZINA KHAN on 09/11/18 0401 Ondansetron (Ondansetron Odt) 4 Mg Tab.rapdis, 4 MG PO Q6H PRN for NAUSEA-1ST LINE Prescribed by: RG ROACH on 09/04/21 1302 Ondansetron (Ondansetron Odt) 4 Mg Tab.rapdis, 4 MG PO Q6H PRN for NAUSEA/VOMITING Prescribed by: JANIK BROUSSARD on 01/21/22 0116 Oxycodone HCl/Acetaminophen (Percocet 5-325 mg Tablet) 1 Each Tablet, 1 EACH PO Q4H PRN for PAIN-MODERATE Prescribed by: ZINA KHAN on 09/11/18 0401 Review of Systems Review of Systems Constitutional: No chills, No fever; malaise EENTM: No Blurred Vision, No Double Vision Respiratory: Denies Cough, Denies Shortness of Air Cardiovascular: Denies Chest Pain, Denies Lightheadedness Gastrointestinal: See HPI; Denies Abdomen Distended; Abdominal Pain; Denies Constipated; Diarrhea, Nausea, Poor Fluid Intake; Denies Vomiting Genitourinary: Denies Burning, Denies Discharge Musculoskeletal: No back pain, No joint pain Psychiatric/Neurological: Denies Anxiety, Denies Depressed, Denies Headache All Other Systems Reviewed Negative Unless Noted: Yes Past Zpfnpax-Ngmgem-Ixgjml Hx Patient Social History Tobacco Use?: No Use of E-Cig and/or Vaping dev: No Substance use?: No Alcohol Use?: No Immunizations Up To Date Tetanus Booster (TDap): Unknown Influenza Vaccine Up-to-Date: Yes; Up-to-Date Second COVID19 Vaccination Trey: 11/13 Seasonal Allergies Seasonal Allergies: Yes Past Medical History Surgeries: Yes (DIAGNOSTIC LAPAROSCOPIES) Appendectomy, Section, 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 Respiratory: No Cardiac: No Neurological: No 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 Disorders: Yes Female 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 Disorders: 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 Sexually Transmitted Disease: No HIV/AIDS: No Genitourinary: No Gastrointestinal: Yes Gall Bladder Disease Musculoskeletal: No Endocrine: No HEENT: Yes (GLASSES) Loss of Vision: Bilateral Hearing Impairment: Denies Cancer: No Psychosocial: Yes (HX) Anxiety, Depression Integumentary: No Blood Disorders: No Adverse Reaction/Blood Tranf: No (N/A) Family Medical History No Pertinent Family Hx Physical Exam Vital Signs Vital Signs - First Documented 01/20/22 01/21/22 21:14 01:25 Temp 36.3 Pulse 103 Resp 20 B/P (MAP) 103/54 (70) Pulse Ox 100 O2 Delivery Room Air Capillary Refill : Height/Weight/BMI Height: 5'4.00" Weight: 190lbs. 0.0oz. [id number]; 26.00 BMI Method:Stated General Appearance: WD/WN, mild distress HEENT: PERRL/EOMI, pharynx normal Neck: full range of motion, normal inspection Respiratory: lungs clear, normal breath sounds, no respiratory distress, no accessory muscle use Cardiovascular: normal peripheral pulses, regular rate, rhythm Peripheral Pulses: 2+ Radial Pulses (R), 2+ Radial Pulses (L) Gastrointestinal: normal bowel sounds, non tender, soft, no organomegaly, no pulsatile mass Rectal: heme positive stool, hemorrhoids (Noninflamed, not infarcted); No mass, No tenderness Extremities: normal range of motion, non-tender, normal inspection, normal capillary refill Neurologic/Psychiatric: alert, oriented x 3, other (Anxious affect) Skin: normal color, warm/dry Progress/Results/Core Measures Results/Orders Lab Results Laboratory Tests Test 01/20/22 21:18 01/20/22 23:08 Range/Units White Blood Count 7.1 4.3-11.0 10^3/uL Red Blood Count 4.26 3.80-5.11 10^6/uL Hemoglobin 12.5 11.5-16.0 g/dL Hematocrit 38 35-52 % Mean Corpuscular Volume 90 80-99 fL Mean Corpuscular Hemoglobin 29 25-34 pg Mean Corpuscular Hemoglobin Concent 33 32-36 g/dL Red Cell Distribution Width 12.6 10.0-14.5 % Platelet Count 276 130-400 10^3/uL Mean Platelet Volume 9.6 9.0-12.2 fL Immature Granulocyte % (Auto) 0 % Neutrophils (%) (Auto) 60 42-75 % Lymphocytes (%) (Auto) 30 12-44 % Monocytes (%) (Auto) 8 0-12 % Eosinophils (%) (Auto) 1 0-10 % Basophils (%) (Auto) 1 0-10 % Neutrophils # (Auto) 4.2 1.8-7.8 10^3/uL Lymphocytes # (Auto) 2.1 1.0-4.0 10^3/uL Monocytes # (Auto) 0.6 0.0-1.0 10^3/uL Eosinophils # (Auto) 0.1 0.0-0.3 10^3/uL Basophils # (Auto) 0.0 0.0-0.1 10^3/uL Immature Granulocyte # (Auto) 0.0 0.0-0.1 10^3/uL Prothrombin Time 13.6 12.2-14.7 SEC INR Comment 1.0 0.8-1.4 Activated Partial Thromboplast Time 36 H 24-35 SEC Sodium Level 139 135-145 MMOL/L Potassium Level 3.1 L 3.6-5.0 MMOL/L Chloride Level 105 98-107 MMOL/L Carbon Dioxide Level 21 21-32 MMOL/L Anion Gap 13 5-14 MMOL/L Blood Urea Nitrogen 12 7-18 MG/DL Creatinine 0.77 0.60-1.30 MG/DL Estimat Glomerular Filtration Rate 107 BUN/Creatinine Ratio 16 Glucose Level 103 70-105 MG/DL Calcium Level 9.3 8.5-10.1 MG/DL Corrected Calcium 9.1 8.5-10.1 MG/DL Magnesium Level 2.1 1.6-2.4 MG/DL Total Bilirubin 0.5 0.1-1.0 MG/DL Aspartate Amino Transf (AST/SGOT) 15 5-34 U/L Alanine Aminotransferase (ALT/SGPT) 15 0-55 U/L Alkaline Phosphatase 88 40-136 U/L C-Reactive Protein High Sensitivity 0.46 0.00-0.50 MG/DL Total Protein 7.4 6.4-8.2 GM/DL Albumin 4.2 3.2-4.5 GM/DL Urine Color YELLOW Urine Clarity CLEAR Urine pH 7.0 5-9 Urine Specific [place] 1.010 L 1.016-1.022 Urine Protein NEGATIVE NEGATIVE Urine Glucose (UA) NEGATIVE NEGATIVE Urine Ketones NEGATIVE NEGATIVE Urine Nitrite NEGATIVE NEGATIVE Urine Bilirubin NEGATIVE NEGATIVE Urine Urobilinogen 2.0 < = 1.0 MG/DL Urine Leukocyte Esterase 1+ H NEGATIVE Urine RBC (Auto) NEGATIVE NEGATIVE Urine RBC RARE /HPF Urine WBC RARE /HPF Urine Squamous Epithelial Cells 2-5 /HPF Urine Crystals NONE /LPF Urine Bacteria TRACE /HPF Urine Casts NONE /LPF Urine Mucus LARGE H /LPF Urine Culture Indicated NO My Orders Orders - JANKI BROUSSARD Orthostatic Vital Signs (Adult (01/20/22 21:34) Cbc With Automated Diff (01/20/22 21:34) Comprehensive Metabolic Panel (01/20/22 21:34) Hs C Reactive Protein (01/20/22 21:34) Ua Culture If Indicated (01/20/22 21:34) Urine Bedside (01/20/22 21:34) Ed Iv/Invasive Line Start (01/20/22 21:34) Lactated Ringers (Lr 1000 Ml Iv Solution (01/20/22 21:45) Protime With Inr (01/20/22 21:34) Partial Thromboplastin Time (01/20/22 21:34) Ct Abdomen/Pelvis W (01/20/22 21:34) Ondansetron Injection (Zofran Injectio (01/20/22 21:45) Fentanyl Inj (Sublimaze Injection) (01/20/22 21:45) Magnesium (01/20/22 22:13) Iohexol Injection (Omnipaque 350 Mg/Ml 1 (01/21/22 01:00) Received Contrast (Hold Metformin- Contr (01/21/22 01:00) Ns (Ivpb) (Sodium Chloride 0.9% Ivpb Bag (01/21/22 01:00) Medications Given in ED Vital Signs/I&O 01/20/22 01/20/22 01/21/22 21:14 21:37 01:25 Temp 36.3 36.2 Pulse 103 96 86 100 116 Resp 20 18 B/P (MAP) 103/54 (70) 115/57 (76) 117/75 125/64 (84) 115/58 (77) Pulse Ox 100 100 O2 Delivery Room Air 01/21/22 00:00 Intake Total 1000 ml Balance 1000 ml Blood Pressure Mean: 77 Fecal Occult: Positive Progress Progress Note #1: Time: 21:49 Progress Note Plan to check some labs to check her hemoglobin level give her a liter of fluids. Orthostatics were borderline positive with elevated heart rates of 96- 116. Diverticulitis, polyp, AVM, etc.?. CT of the abdomen pelvis. If she has an elevated white count and will complete a septic work-up. Fentanyl and Zofran for her discomfort. Progress Note #2: Time: 01:14 Progress Note Patient is feeling much better rating her pain as a 3 out of 10. She agrees with the plan to follow-up with Dr. MOORE. Return precautions were discussed. Diagnostic Imaging Diagonstic Imaging: CT Plain Films/CT/US/NM/MRI: abdomen, pelvis Comments No acute findings. Appendix without evidence of appendicitis. No evidence of colitis or diverticulitis. [facility] [place], [place] NAME: RUBENS MCCARTHYSSFLACO [facility] REC#: [id number] PT STATUS: DEP ER : 1990 PHYSICIAN: JANKI BROUSSARD MD ADMIT DATE: 01/20/22/ER Signed Date of Exam:01/20/22 CT ABDOMEN/PELVIS W PROCEDURE: CT abdomen and pelvis with contrast. TECHNIQUE: Multiple contiguous axial images were obtained through the abdomen and pelvis after administration of intravenous contrast. Auto Exposure Controls were utilized during the CT exam to meet ALARA standards for radiation dose reduction. All CT scans use one or more of the following dose optimizing techniques: automated exposure control, MA and/or KvP adjustment based on patient size and exam type or iterative reconstruction. INDICATION: Pain, rectal bleeding COMPARISON: May 21, 2018 FINDINGS: Calcified granuloma within the right lower lobe. Cholecystectomy. The liver and spleen are unremarkable besides calcified splenic granuloma. The adrenal glands are unremarkable. The pancreas is unremarkable. The kidneys are unremarkable. No aneurysmal dilatation of the abdominal aorta. Prior appendectomy. The urinary bladder is unremarkable. The uterus is nonvisualized, likely surgically absent. No abnormal adnexal mass lesion. No bowel obstruction or pneumatosis. Poor distention of the colon. No significant adenopathy, free air, or free fluid within the abdomen or pelvis. No acute osseous abnormality. IMPRESSION: No acute abnormality with poor distention of the colon. Additional postsurgical changes as described above. Agree with preliminary interpretation. Dictated by: Dictated on workstation # [id number] Dict: 01/21/22 0638 Trans: 01/21/22 1624 HERMELINDA [id number] Interpreted by: IRIS CARVALHO MD Electronically signed by: IRIS CARVALHO MD 01/21/22 1624 Reviewed: Reviewed by Me Departure Impression Primary Impression: Bright red blood per rectum Disposition: HOME, SELF-CARE Condition: Stable Departure-Patient Inst. Decision time for Depature: 01:14 Referrals: JILL BABB MD (PCP/Family) Primary Care Physician DION MOORE MD Patient Instructions: Bloody Stools, Adult (DC) Add. Discharge Instructions: Drink plenty of fluids and stay on a bland diet. Omeprazole 40 mg once a day. Call Dr. MOORE on Saturday and request follow-up to discuss appropriate management and potential endoscopy. Promptly return to ER if you are having shortness of breath, chest pain or continue to have worsening symptoms. Ondansetron 1 tablet every 6 hours as needed for nausea or vomiting. Tylenol 1000 mg every 8 hours as needed for pain. Avoid NSAIDs such as ibuprofen, Aleve, naproxen until your colon is healed. All discharge instructions reviewed with patient and/or family. Voiced understanding. Scripts Ondansetron (Ondansetron Odt) 4 Mg Tab.rapdis 4 MG PO Q6H PRN for NAUSEA/VOMITING, #8 TAB 0 Refills Prov: JANKI BROUSSARD 01/21/22 Copy Copies To 1: DION MOORE MD, TITUS J January 20, 2022 21:50
[2022-01-20 21:51] LABS: CALCIUM 9.3 MG/DL (8.5-10.1)
[2022-01-20 21:52] LABS: TOTAL PROTEIN 7.4 GM/DL (6.4-8.2)
[2022-01-20 21:53] LABS: BILIRUBIN,TOTAL 0.5 MG/DL (0.1-1.0)
[2022-01-20 21:55] LABS: CREATININE SERUM 0.77 MG/DL (0.60-1.30)
[2022-01-20 21:57] LABS: BASOPHILS % (AUTO) 1 % (0-10); EOSINOPHILS # (AUTO) 0.1 10^3/uL (0.0-0.3); EOSINOPHILS % (AUTO) 1 % (0-10); HEMATOCRIT 38 % (35-52); HEMOGLOBIN 12.5 g/dL (11.5-16.0); LYMPHOCYTES # (AUTO) 2.1 10^3/uL (1.0-4.0); LYMPHOCYTES % (AUTO) 30 % (12-44); MEAN CORPUSCULAR HEMOGLOBIN 29 pg (25-34); MEAN CORPUSCULAR HGB CONC 33 g/dL (32-36); MEAN CORPUSCULAR VOLUME 90 fL (80-99); MEAN PLATELET VOLUME 9.6 fL (9.0-12.2); MONOCYTES # (AUTO) 0.6 10^3/uL (0.0-1.0); MONOCYTES % (AUTO) 8 % (0-12); NEUTROPHILS # (AUTO) 4.2 10^3/uL (1.8-7.8); NEUTROPHILS % (AUTO) 60 % (42-75); PLATELET COUNT 276 10^3/uL (130-400); WHITE BLOOD COUNT 7.1 10^3/uL (4.3-11.0)
[2022-01-20 22:03] LABS: PROTHROMBIN TIME PATIENT 13.6 SEC (12.2-14.7)
[2022-01-20 23:17] LABS: BILIRUBIN,URINE NEGATIVE (NEGATIVE); CLARITY,URINE CLEAR; COLOR,URINE YELLOW; GLUCOSE, URINE (UA) NEGATIVE (NEGATIVE); KETONES,URINE NEGATIVE (NEGATIVE); LEUKOCYTE ESTERASE ,URINE 1+ (NEGATIVE); NITRITE,URINE NEGATIVE (NEGATIVE); PROTEIN,URINE NEGATIVE (NEGATIVE)
[2022-01-20 23:37] LABS: BACTERIA,URINE TRACE /HPF; RBC,URINE RARE /HPF; WBC,URINE RARE /HPF
[2022-01-21] MEDS ORDERED: IOHEXOL 350 MG/ML 100 ML (OMNIPAQUE 350) VIAL IV ONE (01:00)
[2022-01-21] MEDS ORDERED: NS 100 ML (IVPB) BAG IV ONE (01:00)
[2022-01-21] MEDS ORDERED: HOLD METFORMIN - RECEIVED CONTRAST 20 ML VIAL IV SCH (01:00)
[2022-01-21] MEDS ORDERED: ONDA4TAB11 PO (01:16)
[2022-01-21 01:25] VITALS: BP 117/75
--- NOTE | 2022-01-21 06:45 | Diagnostic Imaging Report ---
PROCEDURE: CT abdomen and pelvis with contrast. TECHNIQUE: Multiple contiguous axial images were obtained through the abdomen and pelvis after administration of intravenous contrast. Auto Exposure Controls were utilized during the CT exam to meet ALARA standards for radiation dose reduction. All CT scans use one or more of the following dose optimizing techniques: automated exposure control, MA and/or KvP adjustment based on patient size and exam type or iterative reconstruction. INDICATION: Pain, rectal bleeding COMPARISON: May 21, 2018 FINDINGS: Calcified granuloma within the right lower lobe. Cholecystectomy. The liver and spleen are unremarkable besides calcified splenic granuloma. The adrenal glands are unremarkable. The pancreas is unremarkable. The kidneys are unremarkable. No aneurysmal dilatation of the abdominal aorta. Prior appendectomy. The urinary bladder is unremarkable. The uterus is nonvisualized, likely surgically absent. No abnormal adnexal mass lesion. No bowel obstruction or pneumatosis. Poor distention of the colon. No significant adenopathy, free air, or free fluid within the abdomen or pelvis. No acute osseous abnormality. IMPRESSION: No acute abnormality with poor distention of the colon. Additional postsurgical changes as described above. Agree with preliminary interpretation. Dictated by: Dictated on workstation # [id number]
== END 2022-01-21 01:30 | disposition home or self-care (01) ==
LOC: EDUNIT# 21:05 → ER 21:07
DX: K62.5 Hemorrhage of anus and rectum (principal); R03.0 Elevated blood-pressure reading, without diagnosis of hypertension
CPT/HCPCS: 36415; 74177; 80053; 81000; 82274; 83735; 84703; 85025; 85610; 85730; 86141

== ENCOUNTER 2022-01-24 10:02 | Day surgery (SDC) | payer OTHER ==
[~2022-01-24] VITALS: Ht 162.6 cm; Wt 67.5 kg
[2022-01-24] MEDS ORDERED: LACTATED RINGERS 1,000 ML IV STA (10:08)
[2022-01-24] MEDS ORDERED: HURRICAINE EXT TUBE (BENZOCAINE) XX PRN (10:15)
[2022-01-24 10:20] VITALS: BP 126/83
[2022-01-24] MEDS ORDERED: AMPH10TA PO (10:28)
[2022-01-24] MEDS ORDERED: TOPI50TA13 PO (10:28)
[2022-01-24] MEDS ORDERED: DULO60CA59 PO (10:28)
[2022-01-24] MEDS ORDERED: SUMA100T3 PO (10:28)
--- NOTE | 2022-01-24 11:05 | Progress Note-Pre Operative ---
Pre-Operative Progress Note H&P Reviewed The H&P was reviewed, patient examined and no changes noted. Date Seen by Provider: Jan 24, 2022 Time Seen by Provider: 10:30 Date H&P Reviewed: Jan 24, 2022 Time H&P Reviewed: 10:30 Pre-Operative Diagnosis: wt loss, rectal bleed DION MOORE MD Jan 24, 2022 11:05
--- NOTE | 2022-01-24 11:07 | Discharge Inst-Surgical ---
D/C Lap Instructions-TERESA Follow Up Activity as tolerated High Fiber Diet 25g or more per day Avoid Alcohol, Caffeine, Spicy [place] and Acid foods. Drink 64 fluid oz or more of fluids per day. Symptoms to Report: Fever over 101 degree F, Nausea/Vomiting If any problems/questions: Contact your physician or go to Emergency Room DION MOORE MD Jan 24, 2022 11:07
[2022-01-24] MEDS ORDERED: ONDANSETRON 4 MG/2 ML (SDV) Z0FRAN IVP PRN (11:15)
[2022-01-24] MEDS ORDERED: ONDANSETRON 4 MG (ZOFRAN) ORAL DISSOLVE TAB PO PRN (11:15)
[2022-01-24] MEDS ORDERED: PROPOFOL INJECTION 50 ML IV ONE (12:51)
[2022-01-24] MEDS ORDERED: MIDAZOLAM 2 MG/2 ML (VERSED) VIAL ONE (12:51)
[2022-01-24] MEDS: LIDOCAINE JELLY 2% 6 ML SYRINGE MM PRN ×2 (13:02→13:17)
--- NOTE | 2022-01-24 13:45 | Anesthesia-General Post-Op ---
MAC Patient Condition Mental Status/LOC: Same as Preop Cardiovascular: Satisfactory Nausea/Vomiting: Absent Respiratory: Satisfactory Pain: Controlled Complications: Absent Post Op Complications Complications None Follow Up Care/Instructions Patient Instructions None needed. Anesthesiology Discharge Order Discharge Order Patient is doing well, no complaints, stable vital signs, no apparent adverse anesthesia problems. No complications reported per nursing. BRET PERLA DO Jan 24, 2022 13:44
[2022-01-24 13:46] VITALS: BP 113/70
[2022-01-24 13:47] VITALS: BP 113/70
[2022-01-24] MEDS ORDERED: PANT40TA2 PO (14:00)
[2022-01-24 14:10] VITALS: BP 113/70
--- NOTE | 2022-01-24 14:15 | Progress Note-Post Operative ---
Post-Operative Progess Note Surgeon (s)/Motor Tester (s) Surgeon DION MOORE MD Motor Tester: none Pre-Operative Diagnosis wt loss, rectal bleed Post-Operative Diagnosis reflux esophagitis(grade B-C), small HH(1.5cm), moderate gastritis. mild chronic stage 2 ext and int hemorrhoids. Procedure & Operative Findings Date of Procedure 01/24/22 Procedure Performed/Findings EGD with bx. colonoscopy. Anesthesia Type mac Estimated Blood Loss Estimated blood loss (mL): minimal Specimens/Packing Specimens Removed ge jxn, antrum DION MOORE MD Jan 24, 2022 14:15
--- NOTE | 2022-01-25 00:15 | OPERATIVE REPORT ---
DATE OF SERVICE: 01/24/2022 ATTENDING PRIMARY CARE PHYSICIAN: Susy Sutton MD PREOPERATIVE DIAGNOSES: Weight loss, rectal bleeding. POSTOPERATIVE DIAGNOSES: Reflux esophagitis [place] between grade B and C, small hiatal hernia 1.5 cm in size, moderate gastritis, normal duodenum, chronic stage II external and internal hemorrhoids. Remainder of the rectum and colon were normal. There were no mucosal inflammatory changes. PROCEDURE: EGD with biopsy, colonoscopy. SURGEON: Dion Moore MD ANESTHESIA: Monitored anesthesia care. ESTIMATED BLOOD LOSS: Minimal. FINDINGS: Reflux esophagitis [place] between grade B and C, small hiatal hernia 1.5 cm in size, moderate gastritis, normal duodenum, chronic stage II external and internal hemorrhoids. Remainder of the rectum and colon were normal. There were no mucosal inflammatory changes. DISPOSITION: The patient tolerated the procedure well. INDICATIONS: The patient is a 31-year-old female known to us. We had initially seen her in 2019 for recurrent pain in the epigastric region and right upper abdominal quadrant as well as associated nausea and vomiting. She had an ultrasound performed, which did not show any gallstones; however, during the HIDA scan, she did have a reproduction of symptoms consistent with a biliary dyskinesia and underwent a laparoscopic cholecystectomy on 09/18/2018. For the past 2 months, she reports that she has had red blood per rectum as well as increased stress, which has caused worsening gastroesophageal reflux. She also states she has lost approximately 60 pounds in the past six months unintentionally. She states that she felt extremely fatigued and went to the Emergency Department several days ago and she did have laboratory work and she did have a normal hemoglobin of 12.[address] scan did not show any abnormalities. DESCRIPTION OF PROCEDURE: The patient was brought to the endoscopy suite, laid in the left lateral decubitus position. After adequate IV pain and sedative medications and monitored anesthesia care, the mouthpiece was applied. The endoscope was placed in the mouth, visualizing the pharynx and hypopharyngeal region. Vocal cords, epiglottis and vallecula identified and appeared to be normal. The endoscope was then gently intubated in the esophageal opening and esophagus insufflated. The endoscope was then advanced to the valves of Bey of the rectum with no polyps or any neoplasms identified. The endoscope was then gently intubated in the esophageal opening and esophagus insufflated. The endoscope was then advanced to the first, second and third portion of esophagus to the level of the GE junction, had reflux esophagitis between [place] grade B and C identified. No ulcers or strictures identified and a biopsy was taken with forceps with visualization of good hemostasis. The endoscope was then advanced in the stomach and the endoscope retroflexed, visualizing a small hiatal hernia approximately 1.5 cm in size. There was a moderate to severe gastritis. No formal ulcerations, polyps, or any neoplasms. Biopsy was taken of the antrum to rule out H. pylori with visualization of good hemostasis. Endoscope was then advanced to the pylorus and the first and second portion of the duodenum, which appeared normal with no distal obstructions. The endoscope was slowly withdrawn while taking a second look and suctioning of residual air with no additional findings. A digital rectal examination was performed, which revealed chronic stage II external and internal hemorrhoids, not actively edematous nor inflamed and no bleeding. Normal sphincter tone was felt and there were no palpable masses. The endoscope was then intubated and anus and rectum gently insufflated. The endoscope was then advanced through the valves of Bey of the rectum with no polyps or any neoplasms identified. Through the sigmoid colon, no diverticulosis identified. The endoscope was then advanced and remainder of the descending, transverse and ascending colon through the cecum. The entire colon and rectum, there were no mucosal inflammatory changes to indicate any active inflammatory bowel disease. The endoscope was then slowly withdrawn while taking a second look and suctioning of residual air with no additional findings. The patient tolerated the procedure well. We will start her on Protonix 40 mg daily and she will be instructed to avoid caffeinated beverages, spicy, greasy and acidic foods. We will also recommend a high-fiber diet with a fiber supplement, which should equal or exceed 25 grams daily to promote soft stools on a daily basis. If she has reoccurring symptoms, we will have her follow up in the office. Job ID: [id number] DocumentID: [id number] Dictated Date: 01/24/2022 13:48:59 Power Bender Operator Date: 01/24/2022 23:38:20 Dictated By: DION MOORE MD [facility]
== END 2022-01-24 14:28 | disposition home or self-care (01) ==
LOC: ENDO 10:02
PROVIDERS: ATTEND Surgery
DX: K21.00 Gastro-esophageal reflux disease with esophagitis, without bleeding (principal); K29.50 Unspecified chronic gastritis without bleeding; K31.89 Other diseases of stomach and duodenum; K62.5 Hemorrhage of anus and rectum; K44.9 Diaphragmatic hernia without obstruction or gangrene; K64.4 Residual hemorrhoidal skin tags; R63.4 Abnormal weight loss; K64.1 Second degree hemorrhoids

== ENCOUNTER → 2022-04-12 | Outpatient (CLI) | payer OTHER ==
[~2022-04-12] MED LIST changes: +AMPH10TA PO; +DULO60CA59 PO; +PANT40TA2 PO; +SUMA100T3 PO; +TOPI50TA13 PO
== END ==
LOC: CARD 11:29
PROVIDERS: ATTEND Nurse Practitioner Family
DX: I49.9 Cardiac arrhythmia, unspecified (principal)
CPT/HCPCS: 93005

== ENCOUNTER 2022-12-07 12:05 | Emergency (ER) | payer OTHER ==
[~2022-12-07] VITALS: Ht 165 cm; Wt 68.0 kg
[~2022-12-07 12:05] MED LIST changes: +TOPI-241 PO; -TOPI50TA13 PO
--- NOTE | 2022-12-07 12:16 | ED Psychosocial ---
General Chief Complaint: Overdose Stated Complaint: OVERDOSE ON PRESCRIPTION MEDS History of Present Illness Date Seen by Provider: Dec 07, 2022 Time Seen by Provider: 12:16 Initial Comments Patient is a 32-year-old female who presents to the emergency room after an intentional overdose of Adderall. Patient states that she took "x" amount of adderall at about 11am. SHe opened all the capsules and put them in a drink. Was wanting to harm herself. She has been upset in recent weeks over her daughter wanting to stay with her ex-. Has a history of depression and took herself off her anti-depressants a few months ago because she was feeling "fine". She didnt want to go back to the doctor or get a new prescription because she wanted to just be able to get through it on her own. Timing/Duration: this morning (11am) Severity: severe Associated Symptoms: anxiety, ingestion, suicidal ideation (AAKASH REGAN MD) Allergies and Home Medications Allergies Coded Allergies: No Known Drug Allergies (Unverified , 08/06/17) Patient Home Medication List Home Medication List Reviewed: Yes (AAKASH REGAN MD) Amphetamine Sulfate (Amphetamine Sulfate) 10 Mg Tablet, 20 MG PO DAILY, (Reported) Entered as Reported by: KUMAR CLAUDIO on 01/24/22 1028 Duloxetine HCl (Duloxetine HCl) 60 Mg Capsule.dr, 60 MG PO DAILY, (Reported) Entered as Reported by: KUMAR CLAUDIO on 01/24/22 1028 Pantoprazole Sodium (Protonix) 40 Mg Tablet.dr, 40 MG PO DAILY Prescribed by: SHITAL EASLEY on 01/24/22 1400 Sumatriptan Succinate (Sumatriptan Succinate) 100 Mg Tablet, 100 MG PO PRN, (Reported) Entered as Reported by: KUMAR CLAUDIO on 01/24/22 1028 Topiramate (Topiramate) 50 Mg Tablet, 50 MG PO BID, (Reported) Entered as Reported by: KUMAR CLAUDIO on 01/24/22 1028 Review of Systems Constitutional: see HPI EENTM: no symptoms reported Respiratory: short of breath Cardiovascular: no symptoms reported Gastrointestinal: nausea, vomiting Genitourinary: no symptoms reported : No Control/STD Prophylaxis: Other (HYST) Musculoskeletal: no symptoms reported Psychiatric/Neurological: Anxiety, Depressed, Emotional Problems, Headache (AAKASH REGAN MD) All Other Systems Reviewed Negative Unless Noted: Yes (AAKASH REGAN MD) Past Cxyvdqe-Agvpbs-Klgkyk Hx Immunizations Up To Date Tetanus Booster (TDap): Unknown First/Initial COVID19 Vaccinat: 11/13 Second COVID19 Vaccination Trey: 11/13 Third COVID19 Vaccination Date: 11/13 (AAKASH REGAN MD) Seasonal Allergies Seasonal Allergies: Yes (AAKASH REGAN MD) Past Medical History Surgeries: Yes (DIAGNOSTIC LAPAROSCOPIES) Appendectomy, Section, 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 Respiratory: No Cardiac: No Neurological: No 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 Disorders: Yes Female 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 Disorders: Endometriosis 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 Sexually Transmitted Disease: No HIV/AIDS: No Genitourinary: No Gastrointestinal: Yes Gall Bladder Disease Musculoskeletal: No Endocrine: No HEENT: Yes (GLASSES) Loss of Vision: Bilateral Hearing Impairment: Denies Cancer: No Psychosocial: Yes (HX) Anxiety, Depression Integumentary: No Blood Disorders: No Adverse Reaction/Blood Tranf: No (N/A) (AAKASH REGAN MD) Family Medical History No Pertinent Family Hx (AAKASH REGAN MD) Physical Exam Vital Signs - First Documented 12/07/22 12:13 Temp 36.6 Pulse 99 Resp 27 B/P (MAP) 118/89 (99) Pulse Ox 100 O2 Delivery Room Air (NELSON,ANYA L DO) Capillary Refill : (AAKASH RGEAN MD) Height, Weight, BMI Height: 5'4.00" Weight: 190lbs. 0.0oz. 86.767771ft; 25.53 BMI Method:Stated General Appearance: WD/WN, moderate distress HEENT: PERRL/EOMI Neck: normal inspection Respiratory: no respiratory distress, no accessory muscle use Extremities: normal range of motion Neurologic/Psychiatric: alert, depressed affect (depressed, anxious, tea rful/crying) Behavior/Eye Contact: cooperative, good eye contact, normal speech Thoughts/Hallucinations: normal thought pattern Skin: normal color, warm/dry, tattoos/piercings (AAKASH REGAN MD) Progress/Results/Core Measures Results/Orders Lab Results Laboratory Tests Test 12/07/22 12:15 12/07/22 12:30 12/07/22 14:42 Range/Units White Blood Count 9.2 4.3-11.0 10^3/uL Red Blood Count 4.85 3.80-5.11 10^6/uL Hemoglobin 14.4 11.5-16.0 g/dL Hematocrit 44 35-52 % Mean Corpuscular Volume 90 80-99 fL Mean Corpuscular Hemoglobin 30 25-34 pg Mean Corpuscular Hemoglobin Concent 33 32-36 g/dL Red Cell Distribution Width 13.2 10.0-14.5 % Platelet Count 344 130-400 10^3/uL Mean Platelet Volume 9.9 9.0-12.2 fL Immature Granulocyte % (Auto) 0 % Neutrophils (%) (Auto) 68 42-75 % Lymphocytes (%) (Auto) 24 12-44 % Monocytes (%) (Auto) 7 0-12 % Eosinophils (%) (Auto) 1 0-10 % Basophils (%) (Auto) 0 0-10 % Neutrophils # (Auto) 6.2 1.8-7.8 10^3/uL Lymphocytes # (Auto) 2.2 1.0-4.0 10^3/uL Monocytes # (Auto) 0.6 0.0-1.0 10^3/uL Eosinophils # (Auto) 0.1 0.0-0.3 10^3/uL Basophils # (Auto) 0.0 0.0-0.1 10^3/uL Immature Granulocyte # (Auto) 0.0 0.0-0.1 10^3/uL Sodium Level 140 135-145 MMOL/L Potassium Level 3.8 3.6-5.0 MMOL/L Chloride Level 105 98-107 MMOL/L Carbon Dioxide Level 20 L 21-32 MMOL/L Anion Gap 15 H 5-14 MMOL/L Blood Urea Nitrogen 11 7-18 MG/DL Creatinine 0.77 0.60-1.30 MG/DL Estimat Glomerular Filtration Rate 106 BUN/Creatinine Ratio 14 Glucose Level 96 70-105 MG/DL Calcium Level 10.0 8.5-10.1 MG/DL Corrected Calcium 8.5-10.1 MG/DL Total Bilirubin 0.5 0.1-1.0 MG/DL Aspartate Amino Transf (AST/SGOT) 14 5-34 U/L Alanine Aminotransferase (ALT/SGPT) 13 0-55 U/L Alkaline Phosphatase 107 40-136 U/L Total Protein 8.2 6.4-8.2 GM/DL Albumin 4.8 H 3.2-4.5 GM/DL Salicylates Level < 5.0 L 5.0-20.0 MG/DL Acetaminophen Level < 10 L 10-30 UG/ML Serum Alcohol < 10 <10 MG/DL SARS-CoV-2 RNA (RT-PCR) Not Detected Not Detecte Urine Color YELLOW Urine Clarity CLEAR Urine pH 8.5 5-9 Urine Specific Leupp 1.015 L 1.016-1.022 Urine Protein NEGATIVE NEGATIVE Urine Glucose (UA) NEGATIVE NEGATIVE Urine Ketones NEGATIVE NEGATIVE Urine Nitrite NEGATIVE NEGATIVE Urine Bilirubin NEGATIVE NEGATIVE Urine Urobilinogen 1.0 < = 1.0 MG/DL Urine Leukocyte Esterase NEGATIVE NEGATIVE Urine RBC (Auto) NEGATIVE NEGATIVE Urine RBC NONE /HPF Urine WBC 2-5 /HPF Urine Squamous Epithelial Cells NONE /HPF Urine Crystals NONE /LPF Urine Bacteria NEGATIVE /HPF Urine Casts NONE /LPF Urine Mucus NEGATIVE /LPF Urine Culture Indicated NO Urine Opiates Screen NEGATIVE NEGATIVE Urine Oxycodone Screen NEGATIVE NEGATIVE Urine Methadone Screen NEGATIVE NEGATIVE Urine Propoxyphene Screen NEGATIVE NEGATIVE Urine Barbiturates Screen NEGATIVE NEGATIVE Ur Tricyclic Antidepressants Screen NEGATIVE NEGATIVE Urine Phencyclidine Screen NEGATIVE NEGATIVE Urine Amphetamines Screen POSITIVE H NEGATIVE Urine Methamphetamines Screen NEGATIVE NEGATIVE Urine Benzodiazepines Screen NEGATIVE NEGATIVE Urine Cocaine Screen NEGATIVE NEGATIVE Urine Cannabinoids Screen POSITIVE H NEGATIVE (NELSON,ANYA L DO) My Orders Orders - NELSON,ANYA L DO General/Regular (12/08/22 Breakfast) Hydroxyzine Cap/Tab (Vistaril) (12/07/22 22:45) (NELSON,ANYA L DO) Medications Given in ED Current Medications Medications Dose Ordered Sig/Carrol Route Start Time Stop Time Status Last Admin Dose Admin Hydroxyzine Pamoate 25 mg ONCE ONCE PO 12/07/22 22:45 12/07/22 22:46 DC 12/07/22 22:41 25 MG (NELSON,ANYA L DO) Vital Signs/I&O 12/08/22 00:00 Intake Total 1000 ml Balance 1000 ml (NELSON,ANYA L DO) Progress Progress Note : Time: 15:35 Progress Note Patient seen and examined by me. Evaluation today includes physical exam, CBC, Chem-12, urinalysis, aspirin, Tylenol and alcohol levels, urine drug screen, serial EKGs. COVID test. Pertinent physical exam findings include well- developed well nourished 32-year-old female moderate to severe distress secondary to agitation, crying, almost hyperventilating. Heart is regular, lungs are clear. Blood pressure is normal. Abdomen benign, moving all extremities, no signs of injury. Endorses suicidal ideation with overdose of Adderall at approximately 11 AM. Differential diagnosis includes based on history and physical exam includes potential toxidrome, polysubstance overdose at risk for self-harm/suicide Labs independently reviewed by me, CBC is normal, Chem-12 is pertinent only for slightly decreased CO2 at 20. Urinalysis is clean without signs of infection. Tylenol, alcohol and salicylate levels are undetectable. Urine drug screen positive for amphetamines and THC. COVID test is negative. Patient is status post hysterectomy therefore test was not done. Serial EKGs revealed normal sinus rhythm without ectopy. She did have QT prolongation from the first EKG at 443 to the second at 539. Treated in the emergency department with 1/2 mg of Ativan and some Toradol. She did get 4 mg of ondansetron as well. Patient is awaiting medical clearance for evaluation by behavioral health. Poison control stated that Adderall levels will peak at 4 to 6 hours. They recommended a 3 and 6-hour EKG postingestion. Time of ingestion was at 11 AM. Of note at this time nursing change shifts. Patient's new nurse LIZ Morales adv ised me that the patient admitted to her that she sat in her car last night for several hours holding a gun to her head. She ultimately put it down on her own volition. She did not tell me this on my initial history and physical exam. I anticipate that this will change my prior thought process of likely home with a safety plan. I think that the patient should go voluntary inpatient however I think she is going to resist this and may be need to be placed on an involuntary hold. (AAKASH REGAN MD) Initial ECG Impression Date: Dec 07, 2022 Initial ECG Impression Time: 12:30 Initial ECG Rate: 75 Initial ECG Rhythm: Normal Sinus Initial ECG Intervals NE interval 113 QRS 103 QTc 443 Initial ECG Impression: Normal Comment No ectopy, no ST segment change EKG : EKG Time: 15:02 Rate: 79 Rhythm: Normal Sinus Intervals NE interval 105 QRS 87 QTc 539 ECG Comparisson: Changed (QT prolongation) Comment Nonspecific ST-T wave changes over leads V 3, 4, 5 and 6; some baseline artifact noted in leads I and III (AAKASH REGAN MD) Departure Impression Primary Impression: Intentional drug overdose Qualified Codes: T50.902A - Poisoning by unspecified drugs, medicaments and biological substances, intentional self-harm, initial encounter Additional Impressions: Suicidal ideation History of depression Disposition: XFER SHT-TRM HOSP Condition: Stable Transfer Transfer Reason: Exceeds level of care Transfer Progress Notes Accepting dr Darrell Meek Transfer Facility: [facility] Method of Transfer: Law Enforcement (ANYA NELSON DO) Departure-Patient Inst. Referrals: JILL BABB MD (PCP/Family) Primary Care Physician Patient Instructions: ALCOHOL AND SUBSTANCE ABUSE AAKASH REGAN MD Dec 07, 2022 12:16 ANYA NELSON DO Dec 08, 2022 00:56
[2022-12-07 12:30] LABS: BASOPHILS % (AUTO) 0 % (0-10); EOSINOPHILS # (AUTO) 0.1 10^3/uL (0.0-0.3); EOSINOPHILS % (AUTO) 1 % (0-10); HEMATOCRIT 44 % (35-52); HEMOGLOBIN 14.4 g/dL (11.5-16.0); LYMPHOCYTES # (AUTO) 2.2 10^3/uL (1.0-4.0); LYMPHOCYTES % (AUTO) 24 % (12-44); MEAN CORPUSCULAR HEMOGLOBIN 30 pg (25-34); MEAN CORPUSCULAR HGB CONC 33 g/dL (32-36); MEAN CORPUSCULAR VOLUME 90 fL (80-99); MEAN PLATELET VOLUME 9.9 fL (9.0-12.2); MONOCYTES # (AUTO) 0.6 10^3/uL (0.0-1.0); MONOCYTES % (AUTO) 7 % (0-12); NEUTROPHILS # (AUTO) 6.2 10^3/uL (1.8-7.8); NEUTROPHILS % (AUTO) 68 % (42-75); PLATELET COUNT 344 10^3/uL (130-400); WHITE BLOOD COUNT 9.2 10^3/uL (4.3-11.0)
[2022-12-07] MEDS ORDERED: LORazepam INJ 2 MG/ML (ATIVAN) VIAL IVP STA ×2 (12:31→17:13)
[2022-12-07] MEDS ORDERED: NS IV 1000 ML 1,000 ML IV STA (12:31)
[2022-12-07 12:32] LABS: CHLORIDE 105 MMOL/L (98-107); POTASSIUM 3.8 MMOL/L (3.6-5.0)
[2022-12-07 12:33] LABS: ALBUMIN 4.8 GM/DL (3.2-4.5); SODIUM 140 MMOL/L (135-145)
[2022-12-07 12:36] LABS: GLUCOSE 96 MG/DL (70-105); TOTAL PROTEIN 8.2 GM/DL (6.4-8.2)
[2022-12-07 12:37] LABS: BILIRUBIN,TOTAL 0.5 MG/DL (0.1-1.0); CARBON DIOXIDE 20 MMOL/L (21-32)
[2022-12-07 12:39] LABS: ALKALINE PHOSPHATASE 107 U/L (40-136); CREATININE SERUM 0.77 MG/DL (0.60-1.30); GFR ESTIMATED 106
[2022-12-07 12:41] LABS: BUN/CREATININE RATIO 14
[2022-12-07 12:42] LABS: SALICYLATE < 5.0 MG/DL (5.0-20.0)
[2022-12-07 12:43] LABS: ACETAMINOPHEN < 10 UG/ML (10-30); ALANINE AMINOTRANSFERASE 13 U/L (0-55)
[2022-12-07] MEDS ORDERED: ONDANSETRON 4 MG/2 ML (SDV) Z0FRAN IVP ONE (12:45)
[2022-12-07] MEDS ORDERED: KETOROLAC 30 MG/ML VIAL IVP ONE (13:15)
[2022-12-07 14:53] LABS: BILIRUBIN,URINE NEGATIVE (NEGATIVE); CLARITY,URINE CLEAR; COLOR,URINE YELLOW; GLUCOSE, URINE (UA) NEGATIVE (NEGATIVE); KETONES,URINE NEGATIVE (NEGATIVE); LEUKOCYTE ESTERASE ,URINE NEGATIVE (NEGATIVE); NITRITE,URINE NEGATIVE (NEGATIVE); PH,URINE 8.5 (5-9); PROTEIN,URINE NEGATIVE (NEGATIVE)
[2022-12-07 15:03] LABS: BACTERIA,URINE NEGATIVE /HPF
[2022-12-07 15:05] LABS: AMPHETAMINE SCREEN, URINE POSITIVE (NEGATIVE); BARBITURATE SCREEN URINE NEGATIVE (NEGATIVE); BENZODIAZEPINES SCREEN URINE NEGATIVE (NEGATIVE); CANNABINOID SCREEN, URINE POSITIVE (NEGATIVE); COCAINE SCREEN URINE NEGATIVE (NEGATIVE); METHADONE STAT NEGATIVE (NEGATIVE); OPIATE SCREEN URINE NEGATIVE (NEGATIVE); OXYCODONE STAT NEGATIVE (NEGATIVE); PROPOXYPHENE STAT NEGATIVE (NEGATIVE); TRICYCLIC ANTIDEPRESSANTS SCRE NEGATIVE (NEGATIVE)
[2022-12-07] MEDS ORDERED: hydrOXYzine (ATARAX) 10 MG TAB PO PRN (22:30)
[2022-12-07] MEDS ORDERED: hydrOXYzine (VISTARIL/ATARAX) 25 MG capsule/tablet PO ONE (22:45)
[2022-12-08 07:20] VITALS: BP 110/86
== END 2022-12-08 07:20 | disposition short-term general hospital (02) ==
LOC: EDUNIT# 12:05 → ER 12:08
DX: T43.622A Poisoning by amphetamines, intentional self-harm, initial encounter (principal); R11.2 Nausea with vomiting, unspecified; F41.9 Anxiety disorder, unspecified; F32.A Depression, unspecified; Z79.899 Other long term (current) drug therapy; Z20.822 Contact with and (suspected) exposure to COVID-19
CPT/HCPCS: 80053; 80306; 81000; 85025; 87636; 93041; 99284; G0480 ×3; 36415; 80320; 80329; 93005

== ENCOUNTER → 2023-04-26 | Outpatient (CLI) | payer OTHER | LOC: CARD 13:43 | PROVIDERS: ATTEND Family Medicine | DX: I49.9 Cardiac arrhythmia, unspecified (principal) | CPT/HCPCS: 93005 ==

== ENCOUNTER → 2023-05-09 | Outpatient (CLI) | payer OTHER | LOC: CARD 08:35 | PROVIDERS: ATTEND Family Medicine | DX: I49.9 Cardiac arrhythmia, unspecified (principal) | CPT/HCPCS: 93225; 93226 ==